=== PATIENT | female | born 1945 | race Two or more races ===

== ENCOUNTER 2017-04-17 08:30 | Inpatient (IN) | payer MEDICARE, BC, OTHER ==
[~2017-04-17] VITALS: Ht 152.4 cm; Wt 52.1 kg
[~2017-04-17 08:30] MED LIST: AMLO5 PO; LACT20SO4 PO; LINA290C PO; PROT40TA PO; TAB-TAB PO; TRAZ50TA4 PO
[2017-04-17 08:35] VITALS: BP 157/89; PULSE 108; RESP 16; TEMP 98.9; O2SAT 97
[2017-04-17 10:30] VITALS: BP_SYST 169; BP_SYST 196; BP_SYST 207; BP_DIAS 71; BP_DIAS 74; BP_DIAS 83; RESP 20; RESP 21
[2017-04-17] MEDS ORDERED: AMLO5 PO (10:31)
[2017-04-17] MEDS ORDERED: LACT10SO PO (10:31)
[2017-04-17] MEDS ORDERED: SODIUM CHLOR 0.9% 1000 ML INJ 1,000 ML IV ONE (10:53)
--- NOTE | 2017-04-17 10:55 | PD ---
HPI Chief Complaint: Abdominal pain Time Seen by Provider: 10:47 Travel History International Travel<30 days: No Contact w/Intl Traveler<30days: No Traveled to known affect area: No History of Present Illness HPI 71yo F with PMH of HTN, lung cancer now cancer free for 5 years, CAD, recurrent small bowel obstruction presents to the ED with c/o left lower abdominal pain since last night. Pain is constant, nonradiating and associated with nausea. Pt also had a near syncope episode while having a bowel movement at 2am today. States it was dark. States she had colonoscopy and endoscopy 2 months ago and there was infection in her stomach and she finished her antibiotics. Does not know who her GI physician is. Denies any fever, chest pain, sob, focal weakness or numbness. Pt has an extensive past surgical history with partial colectomy, lysis of adhesions, appendectomy, hysterectomy. Last had bowel obstruction in 2015 and it was medically managed. PFSH Past Medical History Asthma: No Blood Disorders: Yes (PT STATES ANEMIC) Anxiety: No Depression: Yes (HX OF. NOT CURRENTLY) Heart Rhythm Problems: No Cancer: Yes (HX LUNG CANCER) Cardiovascular Problems: Yes High Cholesterol: No Chemotherapy: No Chest Pain: No Congestive Heart Failure: No COPD: No Cerebrovascular Accident: No Diabetes: No Endocrine: No Gastrointestinal Disorders: Yes (CONSTIPATION, PT STATES HAS "TOO MUCH SCAR TISSUE") GERD: No Glaucoma: Yes Genitourinary: No Headaches: No Hepatitis: No Hiatal Hernia: No Hypertension: Yes Immune Disorder: No Implanted Vascular Access Dvce: Yes Kidney Stones: No Musculoskeletal: No Neurologic: Yes Psychiatric: No Reproductive: No Respiratory: Yes (LEFT LUNG MASS HX) Migraines: No Myocardial Infarction: No Radiation Therapy: No Renal Failure: No Seizures: No Sleep Apnea: No Thyroid Disease: No Ulcer: No Tetanus Vaccination: < 5 Years Ovarian Cysts: Yes Past Surgical History Abdominal Surgery: Yes (APPENDECTOMY, PORTION OF COLON REMOVED) AICD: No Appendectomy: Yes Arteriovenous Shunt: No Cardiac Surgery: No Cholecystectomy: No Ear Surgery: No Endocrine Surgery: No Eye Surgery: Yes (BILATERAL CATARACTS AND GLUACOMA) Genitourinary Surgery: No Gynecologic Surgery: Yes (HYSTERECTOMY, OVARIAN CYSTS REMOVED X 2) Hysterectomy: Yes Insulin Pump: No Joint Replacement: No Oral Surgery: No Pacemaker: No Thoracic Surgery: Yes (PORTION OF LUNG REMOVED FOR BREAST CANCER AUG 2012) Other Surgery: Yes (PLASTIC SURG ON BOTH ARMS) Social History Alcohol Use: No Tobacco Use: No Substance Use: No Allergies-Medications (Allergen,Severity, Reaction): Coded Allergies: Rocephin (Verified Allergy, Intermediate, FLUSHING, ITCHING, 04/17/17) Reported Meds & Prescriptions Reported Meds & Active Scripts Active Reported Lactulose Liq (Lactulose) 10 Gm/15 Ml Soln 30 Ml PO DAILY PRN Norvasc (Amlodipine Besylate) 5 Mg Tab 5 Mg PO DAILY Review of Systems Except as stated in HPI: all other systems reviewed are Neg Physical Exam Narrative GENERAL: 71yo F in mild distress. SKIN: Focused skin assessment warm/dry. HEAD: Atraumatic. Normocephalic. CARDIOVASCULAR: Regular rate and rhythm. RESPIRATORY: No accessory muscle use. Clear to auscultation. Breath sounds equal bilaterally. GASTROINTESTINAL: Abdomen soft, +TTP LLQ. No rebound tenderness. MUSCULOSKELETAL: No obvious deformities. No clubbing. No cyanosis. No edema. NEUROLOGICAL: Awake and alert. No obvious cranial nerve deficits. Motor grossly within normal limits. Normal speech. PSYCHIATRIC: Appropriate mood and affect; insight and judgment normal. Data Data Last Documented VS Vital Signs Date Time Temp Pulse Resp B/P Pulse Ox O2 Delivery O2 Flow Rate FiO2 04/17/17 10:30 87 20 169/83 79 21 207/74 95 20 196/71 04/17/17 10:18 99 Room Air 04/17/17 08:35 98.9 Orders Electrocardiogram (04/17/17 ) Complete Blood Count With Diff (04/17/17 10:53) Comprehensive Metabolic Panel (04/17/17 10:53) Magnesium (Mg) (04/17/17 10:53) Act Partial Throm Time (Ptt) (04/17/17 10:53) Prothrombin Time / Inr (Pt) (04/17/17 10:53) Urinalysis - C+S If Indicated (04/17/17 10:53) Ecg Monitoring (04/17/17 10:53) Iv Access Insert/Monitor (04/17/17 10:53) Oximetry (04/17/17 10:53) Ondansetron Inj (Zofran Inj) (04/17/17 11:00) Sodium Chloride 0.9% Flush (Ns Flush) (04/17/17 11:00) Sodium Chlor 0.9% 1000 Ml Inj (Ns 1000 M (04/17/17 10:53) Orthostatic Vital Signs (04/17/17 10:53) Troponin I (04/17/17 10:55) Ct Abd/Pel W Iv Contrast(Rout) (04/17/17 ) Morphine Inj (Morphine Inj) (04/17/17 13:00) Blood Culture (04/17/17 13:31) Lactic Acid Sepsis Protocol (04/17/17 13:31) Vancomycin Inj (Vancomycin Inj) (04/17/17 13:45) Metoclopramide Inj (Reglan Inj) (04/17/17 13:45) Iohexol 350 Inj (Omnipaque 350 Inj) (04/17/17 14:37) Diphenhydramine Inj (Benadryl Inj) (04/17/17 15:45) Admit Order (Ed Use Only) (04/17/17 16:05) Labs Laboratory Tests Test 04/17/17 04/17/17 04/17/17 04/17/17 10:34 10:39 11:16 12:18 Troponin I LESS THAN 0.02 NG/ML White Blood Count 18.2 TH/MM3 Red Blood Count 4.95 MIL/MM3 Hemoglobin 14.6 GM/DL Hematocrit 44.6 % Mean Corpuscular Volume 90.2 FL Mean Corpuscular Hemoglobin 29.5 PG Mean Corpuscular Hemoglobin 32.8 % Concent Red Cell Distribution Width 13.8 % Platelet Count 295 TH/MM3 Mean Platelet Volume 9.5 FL Neutrophils (%) (Auto) 87.1 % Lymphocytes (%) (Auto) 6.1 % Monocytes (%) (Auto) 6.2 % Eosinophils (%) (Auto) 0.4 % Basophils (%) (Auto) 0.2 % Neutrophils # (Auto) 15.9 TH/MM3 Lymphocytes # (Auto) 1.1 TH/MM3 Monocytes # (Auto) 1.1 TH/MM3 Eosinophils # (Auto) 0.1 TH/MM3 Basophils # (Auto) 0.0 TH/MM3 CBC Comment AUTO DIFF Differential Total Cells 100 Counted Neutrophils % (Manual) 83 % Band Neutrophils % 3 % Lymphocytes % 6 % Monocytes % 7 % Eosinophils % 1 % Neutrophils # (Manual) 15.7 TH/MM3 Differential Comment FINAL DIFF MANUAL Platelet Estimate NORMAL Platelet Morphology Comment NORMAL Red Cell Morphology Comment NORMAL Prothrombin Time 10.4 SEC Prothromb Time International 0.9 RATIO Ratio Activated Partial 20.5 SEC Thromboplast Time B-Type Natriuretic Peptide 55 PG/ML Urine Color YELLOW Urine Turbidity CLEAR Urine pH 6.5 Urine Specific [place] 1.017 Urine Protein TRACE mg/dL Urine Glucose (UA) NEG mg/dL Urine Ketones TRACE mg/dL Urine Occult Blood NEG Urine Nitrite NEG Urine Bilirubin NEG Urine Urobilinogen LESS THAN 2.0 MG/DL Urine Leukocyte Esterase NEG Urine RBC 3 /hpf Microscopic Urinalysis Comment CULT NOT INDICATED Sodium Level 141 MEQ/L Potassium Level 5.1 MEQ/L Chloride Level 109 MEQ/L Carbon Dioxide Level 27.7 MEQ/L Anion Gap 4 MEQ/L Blood Urea Nitrogen 16 MG/DL Creatinine 0.67 MG/DL Estimat Glomerular Filtration 87 ML/MIN Rate Random Glucose 98 MG/DL Calcium Level 9.0 MG/DL Magnesium Level 2.2 MG/DL Total Bilirubin 0.3 MG/DL Aspartate Amino Transf 15 U/L (AST/SGOT) Alanine Aminotransferase 14 U/L (ALT/SGPT) Alkaline Phosphatase 61 U/L C-Reactive Protein 0.35 MG/DL Total Protein 6.6 GM/DL Albumin 3.4 GM/DL Test 04/17/17 13:53 Lactic Acid Level 0.6 mmol/L [facility] Medical Decision Making Medical Screen Exam Complete: Yes Emergency Medical Condition: Yes Interpretation(s) EKG: NSR 87bpm. Normal axis. ST depression II, III, aVF, V4-V6. Differential Diagnosis Acute diverticulitis vs. GI bleed vs. vasovagal syncope vs. malignancy vs. obstruction Narrative Course 71yo F with left lower abdominal pain since last night. Pt vomited in the ED and was given zofran. Pt vomited again after zofran and reglan ordered. Pt given morphine for pain and currently feels better. Still a little nauseous. Labs reviewed, leukocytosis at 18.2. Troponin negative. H/H stable. Hemaprompt negative. CMP unremarkable. UA negative. Pt was given vancomycin and aztreonam. Pt reevaluated at bedside and denies any more nausea. But now her face is red and she is itching, likely due to the vancomycin. It has been stopped and diphenhydramine 50mg IV ordered. Denies any sob. CTa/p showed moderately dilated loops of small bowel which is about same compared to prior study in 05/01/16. Pt is well appearing and has not vomited since reglan. Discussed with Dr. Mancia who will consult and inform Dr. Yang since he saw the patient last time. Discussed with resident physician and accepted to their service. Diagnosis Primary Impression: Partial small bowel obstruction Admitting Information Admitting Physician Requests: Observation Scripts Acetaminophen (Eq Acetaminophen)325 Mg [id number] Mg PO Q4H PRN (PAIN SCALE 4 TO 10 ) #60 TAB Prov:Owen Spicer MD R3 04/18/17 Gladys Hewitt DO Apr 17, 2017 10:55
[2017-04-17] MEDS ORDERED: SODIUM CHLORIDE 0.9% FLUSH 10 ML FLUSH IVF PRN (11:00)
[2017-04-17] MEDS ORDERED: ONDANSETRON HCL 4 MG/2 ML VIAL IVP ONE (11:00)
[2017-04-17 11:51] LABS: AUTOMATED NEUTROPHIL # 15.9 TH/MM3 (1.8-7.7); BASOPHIL % 0.2 % (0.0-2.0); EOSINOPHIL # 0.1 TH/MM3 (0-0.4); EOSINOPHIL % 0.4 % (0.0-4.0); HEMATOCRIT 44.6 % (35.0-46.0); LYMPH % 6.1 % (9.0-44.0); LYMPHOCYTE # 1.1 TH/MM3 (1.0-4.8); MEAN CELL VOLUME 90.2 FL (80.0-100.0); MEAN CORPUSCULAR HEMOGLOBIN 29.5 PG (27.0-34.0); MEAN CORPUSCULAR HGB CONC 32.8 % (32.0-36.0); MONO % 6.2 % (0.0-8.0); NEUT % 87.1 % (16.0-70.0); PLATELET COUNT 295 TH/MM3 (150-450); RED BLOOD COUNT 4.95 MIL/MM3 (4.00-5.30); RED CELL DISTRIBUTION WIDTH 13.8 % (11.6-17.2); WHITE BLOOD COUNT 18.2 TH/MM3 (4.0-11.0)
[2017-04-17 11:52] LABS: HEMO FLAGS AUTO DIFF
[2017-04-17 11:56] LABS: BLOOD, URINE NEG (NEG); COMMENT (UR) CULT NOT INDICATED; CULTURE IF INDICATED CULT NOT INDICATED; GLUCOSE,URINE NEG (NEG); KETONE, URINE TRACE mg/dL (NEG); NITRITE,URINE NEG (NEG); PH, URINE 6.5 (5.0-8.5); URINE COLOR YELLOW (YELLW/STRAW)
[2017-04-17 11:57] LABS: APTT (PATIENT) 20.5 SEC (24.3-30.1); INTERNATIONAL NORMALIZED RATIO 0.9 RATIO; PROTHROMBIN TIME - PATIENT 10.4 SEC (9.8-11.6)
[2017-04-17 12:23] LABS: BANDS 3 % (0-6); EOSINOPHILS 1 % (0-4); NEUTROPHIL # MANUAL DIFF 15.7 TH/MM3 (1.8-7.7); PLATELET ESTIMATE SMEAR NORMAL (NORMAL); PLATELET MORPHOLOGY NORMAL (NORMAL); POLYS (SEG NEUTROPHILS) 83 % (16-70); SCAN/DIFF FINAL DIFF MANUAL; WBC DIFF SAMPLE 100
[2017-04-17] MEDS ORDERED: MORPHINE SULFATE 4 MG/ML INJ IV PUSH ONE (13:00)
[2017-04-17 13:02] LABS: AST (GOT) 15 U/L (15-37); BICARBONATE 27.7 MEQ/L (21.0-32.0); BLOOD UREA NITROGEN 16 MG/DL (7-18); GLOMERULAR FILTRATION RATE 87 ML/MIN (>89); MAGNESIUM 2.2 MG/DL (1.5-2.5)
[2017-04-17 13:27] LABS: ALKALINE PHOSPHATASE 61 U/L (45-117); ALT (GPT) 14 U/L (10-53); ANION GAP 4 MEQ/L (5-15); CHLORIDE 109 MEQ/L (98-107); POTASSIUM 5.1 MEQ/L (3.5-5.1); SODIUM (NA) 141 MEQ/L (136-145); TOTAL BILIRUBIN ADULT 0.3 MG/DL (0.2-1.0)
[2017-04-17] MEDS ORDERED: METOCLOPRAMIDE INJ 10 MG in SODIUM CHLORIDE 0.9% INJ 50 ML IV ONE (13:45)
[2017-04-17] MEDS ORDERED: VANCOMYCIN INJ 800 MG in SODIUM CHLOR 0.9% 250 ML INJ 250 ML IV ONE (13:45)
[2017-04-17] MEDS ORDERED: IOHEXOL 350 MG/ML 10 ML VIAL (for RAD DIAG) IV ONE (14:37)
--- NOTE | 2017-04-17 14:52 | RADRPT ---
EXAM DATE/TIME: 04/17/2017 14:34 [facility] COMPARISON: CT ABDOMEN & PELVIS W/O CONTRAST, May 01, 2016, 10:13. INDICATIONS : Diffuse abdomen pain for two months. IV CONTRAST: 76 cc Omnipaque 350 (iohexol) IV ORAL CONTRAST: No oral contrast ingested. RADIATION DOSE: 5.13 CTDIvol (mGy) MEDICAL HISTORY : Hypertension. Carcinoma, lung. SURGICAL HISTORY : Appendectomy. ENCOUNTER: Initial ACUITY: 2 months PAIN SCALE: 3/10 LOCATION: Left lower quadrant TECHNIQUE: Volumetric scanning of the abdomen and pelvis was performed. Using automated exposure control and ad justment of the mA and/or kV according to patient size, radiation dose was kept as low as reasonably achievable to obtain optimal diagnostic quality images. DICOM format image data is available electro nically for review and comparison. FINDINGS: LOWER LUNGS: The visualized lower lungs are clear. LIVER: Homogeneous density without lesion. There is no dilation of the biliary tree. No calcified gallston es. SPLEEN: Normal size without lesion. PANCREAS: Within normal limits. KIDNEYS: Normal in size and shape. There is no mass, stone or hydronephrosis. ADRENAL GLANDS: Within normal limits. VASCULAR: There is no aortic aneurysm. Atherosclerotic changes. BOWEL/MESENTERY: There is evidence of previous abdominal surgery with bowel resection in the right lower quadrant. The re are multiple moderately dilated loops of small bowel. No inflammatory changes are seen. The dilat ed loops appear to extend to the region of anastomosis in the right lower quadrant. The bowel dilatat ion is about the same compared to the prior exam from 05/01/2016. There is no evidence of free air or free fluid. The colon is nondistended. ABDOMINAL WALL: Within normal limits. RETROPERITONEUM: There is no lymphadenopathy. BLADDER: Decompressed REPRODUCTIVE: Within normal limits. INGUINAL: There is no lymphadenopathy or hernia. MUSCULOSKELETAL: Within normal limits for patient age. Primary degenerative changes. CONCLUSION: 1. There is evidence of previous resection of the bowel with surgical anastomosis in the right lower quadrant. There continues to be some moderately dilated loops of small bowel which appear to be about the same compared to the prior study of 05/01/2016. Differential considerations would include chronic dilatation secondary to surgery versus ileus versus a partial small bowel obstruction. 2. There is no evidence of free fluid or free air to indicate a breakdown of the surgical anastomosis . 3. Otherwise, stable examination compared to the prior exam. Jorge L Page MD on April 17, 2017 at 14:44 Board Certified Radiologist. This report was verified electronically.
--- NOTE | 2017-04-17 14:56 | EKG ---
Date Performed: 04/17/2017 Time Performed: 08:45:47 PTAGE: 71 years EKG: Sinus rhythm LEFT VENTRICULAR HYPERTROPHY AND ST-T CHANGE ABNORMAL ECG PREVIOUS TRACING : 10/12/2012 15.22 DOCTOR: Juancho Adkins Interpretating Date/Time 04/17/2017 14:53:05
[2017-04-17] MEDS ORDERED: diphenhydrAMINE HCL 50 MG/ML VIAL IV PUSH ONE (15:45)
[2017-04-17 16:12] VITALS: BP 134/72; PULSE 104; RESP 20; O2SAT 100
[2017-04-17] MEDS ORDERED: NALOXONE HCL 0.4 MG/ML AMP IV PRN (16:30)
[2017-04-17] MEDS ORDERED: SODIUM CHLORIDE 0.9% FLUSH 10 ML FLUSH IV FLUSH PRN (16:30)
[2017-04-17] MEDS ORDERED: ONDANSETRON HCL 4 MG/2 ML VIAL IVP PRN (16:30)
[2017-04-17] MEDS ORDERED: LACTULOSE SYRUP 20 GM/30 ML CUP PO PRN (16:30)
[2017-04-17] MEDS ORDERED: BISACODYL 10 MG SUPP RECTAL PRN (16:30)
[2017-04-17] MEDS ORDERED: MAGNESIUM HYDROXIDE SUSP 30 ML CUP PO PRN (16:30)
[2017-04-17] MEDS ORDERED: ACETAMINOPHEN 325 MG TAB PO PRN (16:30)
[2017-04-17] MEDS ORDERED: SENNOSIDES 8.6 MG TAB PO PRN (16:30)
--- NOTE | 2017-04-17 16:31 | HHI.HP ---
[facility] Service Family Medicine Primary Care Physician No Primary Care Physician Admission Diagnosis Partial small bowel obstruction Diagnoses: International Travel<30 Days: No Contact w/Intl Traveler<30days: No Known Affected Area: No History of Present Illness Patient is a 71-year-old female with history of multiple abdominal surgeries and recurrent bowel obstructions presenting due to constipation. Patient reports that she had an episode yesterday evening where she lost control of her bowels. She had a large bowel movement on the floor and felt as if she lost control of her body and fell. Bowel movement was soft and brown, nonbloody. No associated loss of consciousness, dizziness, shaking, seizure- like activity. She endorses discomfort in the left side of her abdomen. She denies black or bloody stools. She has not had a bowel movement or passed gas today. She reports that she has vomited 4. Vomitus is nonbloody, nonbilious, does not contained fecal matter, and is composed of previously consumed food. Patient has a history of multiple abdominal surgeries and has had bowel obstructions on several occasions. Her last colonoscopy was 23 months ago and she believes this was normal. She takes lactulose every other day and she normally has a bowel movement daily. She has had issues with right knee instability over the past 3 months. She reports that she has lost balance after standing for a extended period of time. (Owen Spicer MD R3) Review of Systems Constitutional: COMPLAINS OF: Chills, DENIES: Fever Eyes: DENIES: Blurred vision Ears, nose, mouth, throat: COMPLAINS OF: Vertigo (occasional), DENIES: Hearing loss Respiratory: COMPLAINS OF: Shortness of breath (occasional) Cardiovascular: DENIES: Chest pain Gastrointestinal: COMPLAINS OF: Abdominal pain Genitourinary: DENIES: Dysuria Musculoskeletal: COMPLAINS OF: Joint pain Integumentary: DENIES: Rash Hematologic/lymphatic: DENIES: Bruising Neurologic: DENIES: Headache (Owen Spicer MD R3) Past Family Social History Past Medical History Hypertension Recurrent bowel obstructions Chronic constipation Lung cancer Atrial fibrillation, overlock collar setter is Dr. Lieberman who she saw about 1 year ago. Patient is not sure if she has ever had a echocardiogram. Past Surgical History Bilateral cataracts Hysterectomy Ovarian cyst removal Plastic surgery on both arms Lung resection secondary to lung cancer Appendectomy Colon resection Reported Medications Reported Meds & Active Scripts Active Reported Lactulose Liq (Lactulose) 10 Gm/15 Ml Soln 30 Ml PO DAILY PRN Norvasc (Amlodipine Besylate) 5 Mg Tab 5 Mg PO DAILY (Owen Spicer MD R3) Allergies: Coded Allergies: Rocephin (Verified Allergy, Intermediate, FLUSHING, ITCHING, 04/17/17) Active Ordered Medications Inpatient Medications Acetaminophen (Tylenol) 650 mg Q4H PRN PO TEMP > 100.4; Start 04/17/17 at 16:30 ; Status UNV Bisacodyl (Dulcolax Supp) 10 mg DAILY PRN RECTAL SEVERE CONSITIPATION; Start at 16:30; Status UNV Diphenhydramine HCl 50 mg 50 mg ONCE ONCE IV PUSH Last administered on 15:53; Start 04/17/17 at 15:45; Stop 04/17/17 at 15:46; Status DC Enoxaparin Sodium (Lovenox Inj) 40 mg Q24H SQ ; Start 04/17/17 at 16:30; Status UNV Lactulose (Lactulose Liq) 30 ml DAILY PRN PO SEVERE CONSITIPATION; Start at 16:30; Status UNV Magnesium Hydroxide (Milk Of Magnesia Liq) 30 ml Q12H PRN PO MILD - MODERATE CONSTIPATION; Start 04/17/17 at 16:30; Status UNV Metoclopramide HCl/Sodium Chloride (Reglan Inj/NS Inj) 52 ml @ 104 mls/hr ONCE ONCE IV Last administered on 04/17/17 15:53; Start 04/17/17 at 13:45; Stop 04/17/17 at 14:14; Status DC Morphine Sulfate 2 mg 2 mg ONCE ONCE IV PUSH Last administered on 04/17/17 12: 55; Start 04/17/17 at 13:00; Stop 04/17/17 at 13:01; Status DC Naloxone HCl (Narcan Inj) 0.4 mg UNSCH PRN IV SEE LABEL COMMENTS; Start at 16:30; Status UNV Ondansetron HCl (Zofran Inj) 4 mg Q6H PRN IVP NAUSEA OR VOMITING; Start at 16:30; Status UNV Senna/Docusate Sodium ([place]-Colace) 1 tab BID PO ; Start 04/17/17 at 21:00; Status UNV Sennosides (Senokot) 17.2 mg Q12H PRN PO MODERATE - SEVERE CONSTIPATION; Start 04/17/17 at 16:30; Status UNV Sodium Chloride (NS 1000 ml Inj) 1,000 ml @ 100 mls/hr Q10H IV ; Start 04/17/17 at 16:16; Status UNV Sodium Chloride (NS Flush) 2 ml BID IV FLUSH ; Start 04/17/17 at 21:00; Status UNV Vancomycin HCl 800 mg/Sodium Chloride 258 ml @ 250 mls/hr ONCE ONCE IV Last administered on 04/17/17t 15:53; Start 04/17/17 at 13:45; Stop 04/17/17 at 14:46; Status DC Family History Mother: HTN, MS, at 78 Father:HTN, MS, at 60 Social History Lives with of 54 years Originally from [place] Never smoked, drinks a glass of wine occasionally Denies illicit substance use. (Owen Spicer MD R3) Physical Exam Vital Signs Vital Signs Date Time Temp Pulse Resp B/P Pulse Ox O2 Delivery O2 Flow Rate FiO2 04/17/17 16:12 104 20 134/72 100 Room Air 04/17/17 10:30 87 20 169/83 79 21 207/74 95 20 196/71 04/17/17 10:18 79 28 99 Room Air 04/17/17 08:35 98.9 108 16 157/89 97 Physical Exam GENERAL: This is a well-nourished, well-developed patient, appears uncomfortable. SKIN: No rashes, ecchymoses or lesions. Face and chest are flushed. Skin is warm and dry. HEAD: Atraumatic. Normocephalic. No temporal or scalp tenderness. EYES: Pupils equal round, sluggish. Extraocular motions intact. ENT: Nose without bleeding, purulent drainage or septal hematoma. Throat without erythema, tonsillar hypertrophy or exudate. Uvula midline. Airway patent. NECK: Trachea midline. No JVD or lymphadenopathy. Supple, nontender, no meningeal signs. CARDIOVASCULAR: Tachycardic rate, regular rhythm, 3/6 continuous machine like murmur, no palpable thrill RESPIRATORY: Clear to auscultation. Normal work of breathing. No significant wheezes rales or rhonchi. GASTROINTESTINAL: Abdomen soft, nondistended. Mild tenderness to palpation in LUQ, moderate tenderness with palpation of LLQ. No rebound tenderness. No hepato-splenomegaly, or palpable masses. No guarding. MUSCULOSKELETAL: Extremities without clubbing, cyanosis, or edema. No joint tenderness, effusion, or edema noted. No calf tenderness. Negative Homans sign bilaterally. Left knee with no significant joint line tenderness. Anterior and posterior drawer signs negative. NEUROLOGICAL: Awake and alert. Cranial nerves II through XII intact. Motor and sensory grossly within normal limits. Five out of 5 muscle strength in all muscle groups. Normal speech. Laboratory Laboratory Tests Test 04/17/17 04/17/17 04/17/17 04/17/17 10:34 10:39 11:16 12:18 Troponin I LESS THAN 0.02 White Blood Count 18.2 Red Blood Count 4.95 Hemoglobin 14.6 Hematocrit 44.6 Mean Corpuscular Volume 90.2 Mean Corpuscular Hemoglobin 29.5 Mean Corpuscular Hemoglobin 32.8 Concent Red Cell Distribution Width 13.8 Platelet Count 295 Mean Platelet Volume 9.5 Neutrophils (%) (Auto) 87.1 Lymphocytes (%) (Auto) 6.1 Monocytes (%) (Auto) 6.2 Eosinophils (%) (Auto) 0.4 Basophils (%) (Auto) 0.2 Neutrophils # (Auto) 15.9 Lymphocytes # (Auto) 1.1 Monocytes # (Auto) 1.1 Eosinophils # (Auto) 0.1 Basophils # (Auto) 0.0 CBC Comment AUTO DIFF Differential Total Cells 100 Counted Neutrophils % (Manual) 83 Band Neutrophils % 3 Lymphocytes % 6 Monocytes % 7 Eosinophils % 1 Neutrophils # (Manual) 15.7 Differential Comment FINAL DIFF MANUAL Platelet Estimate NORMAL Platelet Morphology Comment NORMAL Red Cell Morphology Comment NORMAL Prothrombin Time 10.4 Prothromb Time International 0.9 Ratio Activated Partial 20.5 Thromboplast Time Urine Color YELLOW Urine Turbidity CLEAR Urine pH 6.5 Urine Specific [place] 1.017 Urine Protein TRACE Urine Glucose (UA) NEG Urine Ketones TRACE Urine Occult Blood NEG Urine Nitrite NEG Urine Bilirubin NEG Urine Urobilinogen LESS THAN 2.0 Urine Leukocyte Esterase NEG Urine RBC 3 Microscopic Urinalysis Comment CULT NOT INDICATED Sodium Level 141 Potassium Level 5.1 Chloride Level 109 Carbon Dioxide Level 27.7 Anion Gap 4 Blood Urea Nitrogen 16 Creatinine 0.67 Estimat Glomerular Filtration 87 Rate Random Glucose 98 Calcium Level 9.0 Magnesium Level 2.2 Total Bilirubin 0.3 Aspartate Amino Transf 15 (AST/SGOT) Alanine Aminotransferase 14 (ALT/SGPT) Alkaline Phosphatase 61 Total Protein 6.6 Albumin 3.4 Test 04/17/17 13:53 Lactic Acid Level 0.6 Date/Time Procedure Status Source Growth 04/17/17 14:07 Aerobic Blood Culture Received Blood Peripheral Pending 04/17/17 14:07 Anaerobic Blood Culture Received Blood Peripheral Pending (Owen Spicer MD R3) Result Diagram: 04/17/17 1039 04/17/17 1218 Imaging Last 24 hours Impressions Abdomen/Pelvis CT 04/17/17 0000 Signed Impressions: Service Date/Time: Monday, April 17, 2017 14:34 - CONCLUSION: 1. There is evidence of previous resection of the bowel with surgical anastomosis in the right lower quadrant. There continues to be some moderately dilated loops of small bowel which appear to be about the same compared to the prior study of 05/01/2016. Differential considerations would include chronic dilatation secondary to surgery versus ileus versus a partial small bowel obstruction. 2. There is no evidence of free fluid or free air to indicate a breakdown of the surgical anastomosis. 3. Otherwise, stable examination compared to the prior exam. Jorge L Page MD (Owen Spicer MD R3) Assessment and Plan Assessment and Plan Patient is a 71-year-old female with history of multiple abdominal surgeries and recurrent bowel obstructions presenting due to constipation. Code Status Full Discussed Condition With SDW Dr. Oneal, PGY1 (Owen Spicer MD R3) Attending Attestation THIS CASE WAS DISCUSSED WITH THE RESIDENT PHYSICIANS. I HAVE REVIEWED THE RECORD AND AGREE WITH THE ABOVE NOTE AND PLAN OF CARE WAS DISCUSSED. I HAVE AUTHORIZED THE ORDER FOR ADMISSION TO AN IN-PATIENT STATUS. (Haja Holder MD) Problem List: (1) Bowel obstruction Status: Acute Plan: Patient with history of multiple abdominal surgeries and recurrent bowel obstruction. She denies passing gas or having a bowel movement since yesterday. On exam patient with positive bowel sounds. -Patient will remain NPO -Gen. surgery consulted for further evaluation, appreciate recommendations -Consider NG tube placement for bowel decompression Imaging: CT of the abdomen/pelvis: Evidence of previous resection of the bowel with surgical anastomosis in the right lower quadrant. Moderately dilated loops of small bowel which appears to be the same as prior imaging done 1 year ago. Differential includes chronic dilatation versus ileus versus partial small bowel traction. No free fluid or free air. Overall stable from prior imaging. Pain control: [place] and Morphine PRN (2) Leucocytosis Status: Acute Plan: On admission patient with white blood cell count elevated to 18.2. Lactic acid within normal limits at 0.6. Patient is afebrile, heart rate is intermittently elevated. No obvious source of infection. -No signs of abdominal infection on CT. -UA with no signs of infection -We'll check a chest x-ray to rule out pneumonia -We'll check a ESR and a CRP -Blood cultures pending History: Patient received vancomycin 1 and aztreonam 1 in the ED. Patient with "red man" syndrome after administration of vancomycin. (3) Cardiac murmur Status: Acute Plan: On exam patient with significant heart murmur. Per EMR review patient with history of atrial fibrillation. She is followed by a overlock collar setter, Dr. Lieberman. She does not recall if she's ever had a echocardiogram. Denies recent or current chest pain. Initial troponin less than 0.02. -2-D echo -Telemetry (4) Cataplexy Status: Acute Plan: Patient endorses an episode where she lost control of her body and also lost control of her bowels. She denies any associated loss of consciousness. -EEG to rule out seizure -See plan for cardiac murmur (5) Recurrent right knee instability Status: Acute Plan: Patient reports history of recurrent right knee instability. She denies any injury to her knee. Prior knee x-ray from 2005 with mild osteoarthritis. No acute fracture. -We'll check a right knee x-ray (6) HTN (hypertension) Status: Acute Plan: Continue home amlodipine (7) FEN/PPX Status: Acute Plan: Fluids: NS 100mls/hr Electrolytes: Within normal limits, continue to monitor Nutrition: NPO DVT PPX: Will hold pending evaluation by surgery (Owen Spicer MD R3) Physician Certification 2 Midnight Certification Type: Admission for Inpatient Services Order for Inpatient Services The services are ordered in accordance with Medicare regulations or non- Medicare payer requirements, as applicable. In the case of services not specified as inpatient-only, they are appropriately provided as inpatient services in accordance with the 2-midnight benchmark. Estimated LOS (days): 2 2 days is the estimated time the patient will need to remain in the hospital, assuming treatment plan goals are met and no additional complications. Post-Hospital Plan: Not yet determined (Owen pSicer MD R3) Owen Spicer MD R3 Apr 17, 2017 16:31 Haja Holder MD Apr 18, 2017 11:01
[2017-04-17] MEDS ORDERED: ENOXAPARIN SODIUM 40 MG/0.4 ML SYRINGE SQ SCH (17:00)
[2017-04-17] MEDS ORDERED: ACETAMINOPHEN/HYDROcodone 325 MG/7.5 MG TAB PO PRN (17:00)
[2017-04-17] MEDS ORDERED: MORPHINE SULFATE 4 MG/ML INJ IV PRN (17:00)
[2017-04-17] MEDS ORDERED: IBUPROFEN 400 MG TAB PO PRN (17:00)
[2017-04-17] MEDS ORDERED: ACETAMINOPHEN/HYDROcodone 325 MG/5 MG TAB PO PRN (17:00)
--- NOTE | 2017-04-17 17:46 | PD.CONS ---
cc: Shad Yang MD [facility] Service General Surgery Consult Requested By Dr. Hewitt Reason for Consult Partial small bowel obstruction Primary Care Physician No Primary Care Physician History of Present Illness This is a 71-year-old female with a past medical history of lung cancer, coronary artery disease, and recurrent small bowel obstructions. She started having left lower abdominal pain about 2 AM this morning. She felt the need to have a bowel movement and she went to the bathroom. She had a syncopal episode while on the toilet and had a large amount of dark, black diarrhea. Since then she has vomited 4 times, the last time being at approximately noon today. She reports she has not passed any gas since the pain started. She has had off and on again nausea. She came to the emergency room for evaluation of abdominal pain and a CT scan was obtained which showed a possible partial small bowel obstruction. General Surgery consultation has been requested. Review of Systems Constitutional: COMPLAINS OF: Fatigue, DENIES: Chills, Change in appetite Endocrine: DENIES: Polydipsia, Polyuria, Polyphagia Eyes: DENIES: Eye inflammation Ears, nose, mouth, throat: DENIES: Vertigo Respiratory: DENIES: Snoring Cardiovascular: DENIES: Palpitations Gastrointestinal: COMPLAINS OF: Abdominal pain, Diarrhea, Nausea, Vomiting Genitourinary: DENIES: Urinary frequency Musculoskeletal: DENIES: Joint pain Integumentary: DENIES: Abnormal pigmentation Hematologic/lymphatic: DENIES: Bruising Immunologic/allergic: DENIES: Eczema Neurologic: DENIES: Localized weakness Psychiatric: DENIES: Mood changes, Depression, Hallucinations Past Family Social History Past Medical History Lung cancer Coronary artery disease Recurrent small bowel obstructions Past Surgical History Appendectomy Hysterectomy Lysis of adhesions Partial colectomy Reported Medications Norvasc Lactulose Allergies: Coded Allergies: Rocephin (Verified Allergy, Intermediate, FLUSHING, ITCHING, 04/17/17) Active Ordered Medications Current Medications Medications (Trade) Dose Ordered Sig/Mike Route Start Time Stop Time Status Last Admin (NS 1000 ml Inj) 1,000 ml @ 100 mls/hr Q10H IV 04/17/17 18:00 (NS Flush) 2 ml UNSCH PRN IV FLUSH 04/17/17 16:30 (NS Flush) 2 ml BID IV FLUSH 04/17/17 21:00 (Tylenol) 650 mg Q4H PRN PO 04/17/17 16:30 (Zofran Inj) 4 mg Q6H PRN IVP 04/17/17 16:30 (Lovenox Inj) 40 mg Q24H SQ 04/17/17 17:00 Hold (Narcan Inj) 0.4 mg UNSCH PRN IV 04/17/17 16:30 (Marylin-Colace) 1 tab BID PO 04/17/17 21:00 (Milk Of Magnesia Liq) 30 ml Q12H PRN PO 04/17/17 16:30 (Senokot) 17.2 mg Q12H PRN PO 04/17/17 16:30 (Dulcolax Supp) 10 mg DAILY PRN RECTAL 04/17/17 16:30 (Lactulose Liq) 30 ml DAILY PRN PO 04/17/17 16:30 (Norvasc) 5 mg DAILY PO 04/18/17 09:00 (Motrin) 400 mg Q6H PRN PO 04/17/17 17:00 ([place] 5-325 Mg) 1 tab Q4H PRN PO 04/17/17 17:00 ([place] 7.5-325 Mg) 1 tab Q4H PRN PO 04/17/17 17:00 (Morphine Inj) 4 mg Q3H PRN IV 04/17/17 17:00 Family History Noncontributory Social History Denies tobacco use Denies EtOH use Denies illicit drug use Physical Exam Vital Signs Vital Signs Date Time Temp Pulse Resp B/P Pulse Ox O2 Delivery O2 Flow Rate FiO2 04/17/17 16:12 104 20 134/72 100 Room Air 04/17/17 10:30 87 20 169/83 79 21 207/74 95 20 196/71 04/17/17 10:18 79 28 99 Room Air 04/17/17 08:35 98.9 108 16 157/89 97 Physical Exam GENERAL: 71 year old female resting in bed in no acute distress. SKIN: Warm and dry. HEAD: Atraumatic. Normocephalic. EYES: Pupils equal and round. No scleral icterus. No injection or drainage. ENT: No nasal bleeding or discharge. Mucous membranes pink and moist. NECK: Trachea midline. CARDIOVASCULAR: Regular rate and rhythm. RESPIRATORY: No accessory muscle use. Clear to auscultation. Breath sounds equal bilaterally. GASTROINTESTINAL: Abdomen soft, nondistended. Patient is tender to palpation in LLQ only. There is a well healed midline incision and transverse incision. MUSCULOSKELETAL: Extremities without clubbing, cyanosis, or edema. No obvious deformities. NEUROLOGICAL: Awake and alert. No obvious cranial nerve deficits. Motor grossly within normal limits. Five out of 5 muscle strength in the arms and legs. Normal speech. PSYCHIATRIC: Appropriate mood and affect; insight and judgment normal. Laboratory Laboratory Tests Test 04/17/17 04/17/17 04/17/17 04/17/17 10:34 10:39 11:16 12:18 Troponin I LESS THAN 0.02 White Blood Count 18.2 Red Blood Count 4.95 Hemoglobin 14.6 Hematocrit 44.6 Mean Corpuscular Volume 90.2 Mean Corpuscular Hemoglobin 29.5 Mean Corpuscular Hemoglobin 32.8 Concent Red Cell Distribution Width 13.8 Platelet Count 295 Mean Platelet Volume 9.5 Neutrophils (%) (Auto) 87.1 Lymphocytes (%) (Auto) 6.1 Monocytes (%) (Auto) 6.2 Eosinophils (%) (Auto) 0.4 Basophils (%) (Auto) 0.2 Neutrophils # (Auto) 15.9 Lymphocytes # (Auto) 1.1 Monocytes # (Auto) 1.1 Eosinophils # (Auto) 0.1 Basophils # (Auto) 0.0 CBC Comment AUTO DIFF Differential Total Cells 100 Counted Neutrophils % (Manual) 83 Band Neutrophils % 3 Lymphocytes % 6 Monocytes % 7 Eosinophils % 1 Neutrophils # (Manual) 15.7 Differential Comment FINAL DIFF MANUAL Platelet Estimate NORMAL Platelet Morphology Comment NORMAL Red Cell Morphology Comment NORMAL Prothrombin Time 10.4 Prothromb Time International 0.9 Ratio Activated Partial 20.5 Thromboplast Time Urine Color YELLOW Urine Turbidity CLEAR Urine pH 6.5 Urine Specific [place] 1.017 Urine Protein TRACE Urine Glucose (UA) NEG Urine Ketones TRACE Urine Occult Blood NEG Urine Nitrite NEG Urine Bilirubin NEG Urine Urobilinogen LESS THAN 2.0 Urine Leukocyte Esterase NEG Urine RBC 3 Microscopic Urinalysis Comment CULT NOT INDICATED Sodium Level 141 Potassium Level 5.1 Chloride Level 109 Carbon Dioxide Level 27.7 Anion Gap 4 Blood Urea Nitrogen 16 Creatinine 0.67 Estimat Glomerular Filtration 87 Rate Random Glucose 98 Calcium Level 9.0 Magnesium Level 2.2 Total Bilirubin 0.3 Aspartate Amino Transf 15 (AST/SGOT) Alanine Aminotransferase 14 (ALT/SGPT) Alkaline Phosphatase 61 Total Protein 6.6 Albumin 3.4 Test 04/17/17 13:53 Lactic Acid Level 0.6 Date/Time Procedure Status Source Growth 04/17/17 14:07 Aerobic Blood Culture Received Blood Peripheral Pending 04/17/17 14:07 Anaerobic Blood Culture Received Blood Peripheral Pending Result Diagram: 04/17/17 1039 04/17/17 1218 Imaging Last 48 hours Impressions Abdomen/Pelvis CT 04/17/17 0000 Signed Impressions: Service Date/Time: Monday, April 17, 2017 14:34 - CONCLUSION: 1. There is evidence of previous resection of the bowel with surgical anastomosis in the right lower quadrant. There continues to be some moderately dilated loops of small bowel which appear to be about the same compared to the prior study of 05/01/2016. Differential considerations would include chronic dilatation secondary to surgery versus ileus versus a partial small bowel obstruction. 2. There is no evidence of free fluid or free air to indicate a breakdown of the surgical anastomosis. 3. Otherwise, stable examination compared to the prior exam. Jorge L Page MD Assessment and Plan Assessment and Plan 71 year old female with abdominal pain; CT abdomen and pelvis questionable for a small bowel obstruction -Plan for KUB in the morning -Repeat lab is in the morning -Nothing by mouth -Insert NG tube if nausea vomiting occur; placed to LIWS -Will continue to monitor; at this point will attempt nonoperative treatment -Thank you for this consult; we will continue to follow Discussed Condition With Dahiana Little Ms. Apr 17, 2017 17:46
--- NOTE | 2017-04-17 17:48 | RADRPT ---
EXAM DATE/TIME: 04/17/2017 17:17 [facility] COMPARISON: No previous studies available for comparison. INDICATIONS : Short of breath. MEDICAL HISTORY : Hypertension. Carcinoma, lung. SURGICAL HISTORY : None. ENCOUNTER: Initial ACUITY: 1 day PAIN SCORE: 0/10 LOCATION: Bilateral chest FINDINGS: Partial resection left lung and left upper lobectomy. Minimal basal scarring. No effusion. No pneumot horax. Heart size normal. CONCLUSION: 1. Postoperative partial left lung resection. Minimal basilar scarring or atelectasis. Issac Falk MD on April 17, 2017 at 17:46 Board Certified Radiologist. This report was verified electronically.
--- NOTE | 2017-04-17 17:49 | RADRPT ---
EXAM DATE/TIME: 04/17/2017 17:20 [facility] COMPARISON: No previous studies available for comparison. INDICATIONS : Right knee pain and weakness after fall. MEDICAL HISTORY : None. SURGICAL HISTORY : None. ENCOUNTER: Initial ACUITY: 1 day PAIN SCORE: 10/10 LOCATION: Right knee. FINDINGS: Four view examination of the right knee demonstrates no evidence of fracture or dislocation. Bony mi neralization is normal. The articular surfaces are intact. The suprapatellar soft tissues have a no rmal configuration. CONCLUSION: 1. Mild osteoarthritis. No acute findings. Issac Falk MD on April 17, 2017 at 17:47 Board Certified Radiologist. This report was verified electronically.
[2017-04-17] MEDS: SODIUM CHLOR 0.9% 1000 ML INJ 1,000 ML IV SCH ×2 (18:25→22:05)
[2017-04-17 20:00] VITALS: BP 160/72; PULSE 91; RESP 17; TEMP 97.5; O2SAT 97
[2017-04-17] MEDS: SODIUM CHLORIDE 0.9% FLUSH 10 ML FLUSH IV FLUSH SCH (21:00)
[2017-04-17] MEDS: DOCUSATE SODIUM 50 MG/SENNA 8.6 MG TAB PO SCH (21:00)
[2017-04-18] VITALS: BP 114/56; PULSE 71; RESP 18; TEMP 97.9; O2SAT 95
--- NOTE | 2017-04-18 06:28 | RADRPT ---
EXAM DATE/TIME: 04/18/2017 06:17 [facility] COMPARISON: ABDOMEN FLAT & UPRIGHT, May 02, 2016, 5:46. INDICATIONS : Small bowel obstruction. MEDICAL HISTORY : Hypertension. Carcinoma, lung. SURGICAL HISTORY : Appendectomy. ENCOUNTER: Initial ACUITY: 1 day PAIN SCORE: 0/10 LOCATION: Bilateral abdomen FINDINGS: There is contrast in the urinary bladder. Air is present within the large bowel extending to the rect um. There is mild distention of the transverse colon. No dilated loops of small bowel are seen. Surgi chano clips are present. CONCLUSION: Nonspecific, currently nonobstructive bowel gas pattern. Cristhian Diaz MD on April 18, 2017 at 6:26 Board Certified Radiologist. This report was verified electronically.
[2017-04-18 07:14] LABS: AUTOMATED NEUTROPHIL # 6.4 TH/MM3 (1.8-7.7); BASOPHIL % 0.4 % (0.0-2.0); EOSINOPHIL # 0.3 TH/MM3 (0-0.4); EOSINOPHIL % 3.9 % (0.0-4.0); HEMATOCRIT 36.1 % (35.0-46.0); HEMO FLAGS DIFF FINAL; LYMPH % 14.2 % (9.0-44.0); LYMPHOCYTE # 1.3 TH/MM3 (1.0-4.8); MEAN CELL VOLUME 92.1 FL (80.0-100.0); MEAN CORPUSCULAR HGB CONC 32.6 % (32.0-36.0); MONO % 9.5 % (0.0-8.0); PLATELET COUNT 197 TH/MM3 (150-450); RED BLOOD COUNT 3.92 MIL/MM3 (4.00-5.30); RED CELL DISTRIBUTION WIDTH 13.8 % (11.6-17.2); WHITE BLOOD COUNT 8.9 TH/MM3 (4.0-11.0)
[2017-04-18 07:28] LABS: BICARBONATE 22.6 MEQ/L (21.0-32.0); POTASSIUM 3.8 MEQ/L (3.5-5.1)
[2017-04-18 08:00] VITALS: BP 145/65; PULSE 75; RESP 16; TEMP 97.1; O2SAT 98
[2017-04-18] MEDS: DOCUSATE SODIUM 50 MG/SENNA 8.6 MG TAB PO SCH (08:34)
[2017-04-18] MEDS: SODIUM CHLORIDE 0.9% FLUSH 10 ML FLUSH IV FLUSH SCH (08:34)
--- NOTE | 2017-04-18 08:39 | HHI.FPPN ---
Subjective Remarks FM Attending Note: Patient seen and examined. S: Chart and all resident physician notes reviewed. In summary this is a 71 year old female who was admitted with an admission diagnosis of Partial Small Bowel Obstruction. This patient has a history of multiple abdominal surgeries with recurrent bowel obstructions noted. In the past the episodes have been associated with constipation. This patient is on a regimen for constipation which includes Linzess which she apparently has been prescribed daily but has been only using intermittently. Prior to admission the patient did have nausea with several episodes of vomiting. Since her admission overnight she has done well. No further nausea or vomiting is noted. Her abdominal pain has resolved. She is passing gas through her rectum. She feels that she is back to her baseline. She has not eaten yet. Objective Vitals Vital Signs Date Time Temp Pulse Resp B/P Pulse Ox O2 Delivery O2 Flow Rate FiO2 04/18/17 00:00 97.9 71 18 114/56 95 04/17/17 20:00 97.5 91 17 160/72 97 04/17/17 16:12 104 20 134/72 100 Room Air 04/17/17 10:30 87 20 169/83 79 21 207/74 95 20 196/71 04/17/17 10:18 79 28 99 Room Air I/O 04/17/17 04/17/17 04/17/17 04/18/17 04/18/17 04/18/17 07:00 15:00 23:00 07:00 15:00 23:00 Intake Total 616 ml 605 ml Output Total 200 ml Balance 616 ml 405 ml Intake Oral 0 ml IV Total 616 ml 605 ml Output Urine Total 200 ml # Voids 1 # Bowel Movements 1 Result Diagram: 04/18/17 0610 04/18/17 0610 Other Results Item Value Date Time Erythrocyte Sedimentation Rate 10 mm/hr 04/18/17 0610 Total Bilirubin 0.3 MG/DL 04/17/17 1218 Magnesium Level 2.2 MG/DL 04/17/17 1218 Aspartate Amino Transf (AST/SGOT) 15 U/L 04/17/17 1218 Alanine Aminotransferase (ALT/SGPT) 14 U/L 04/17/17 1218 B-Type Natriuretic Peptide 55 PG/ML 04/17/17 1039 C-Reactive Protein 0.35 MG/DL H 04/17/17 1218 Urine Specific [place] 1.017 04/17/17 1116 Urine Nitrite NEG 04/17/17 1116 Urine Leukocyte Esterase NEG 04/17/17 1116 Imaging Last 48 hours Impressions Abdomen X-Ray 04/18/17 0600 Signed Impressions: Service Date/Time: Tuesday, April 18, 2017 06:17 - CONCLUSION: Nonspecific , currently nonobstructive bowel gas pattern. Cristhian Diaz MD Knee X-Ray 04/17/17 0000 Signed Impressions: Service Date/Time: Monday, April 17, 2017 17:20 - CONCLUSION: 1. Mild osteoarthritis. No acute findings. Issac Falk MD Chest X-Ray 04/17/17 0000 Signed Impressions: Service Date/Time: Monday, April 17, 2017 17:17 - CONCLUSION: 1. Postoperative partial left lung resection. Minimal basilar scarring or atelectasis. Issca Falk MD Abdomen/Pelvis CT 04/17/17 0000 Signed Impressions: Service Date/Time: Monday, April 17, 2017 14:34 - CONCLUSION: 1. There is evidence of previous resection of the bowel with surgical anastomosis in the right lower quadrant. There continues to be some moderately dilated loops of small bowel which appear to be about the same compared to the prior study of 05/01/2016. Differential considerations would include chronic dilatation secondary to surgery versus ileus versus a partial small bowel obstruction. 2. There is no evidence of free fluid or free air to indicate a breakdown of the surgical anastomosis. 3. Otherwise, stable examination compared to the prior exam. Jorge L Page MD Objective Remarks O. CONSTITUTIONAL/GEN: normally nourished, in NAD. EYES: conjunctiva normal, PERRLA, EOMI. ENT: Mouth and pharynx normal. LUNGS: clear A-P, respiratory effort is normal. CARDIOVASCULAR: RR without murmur or gallop. No significant edema. GI/ABD: soft without masses, without organomegaly. Non-tender without guarding or rebound. Scars present from previous abdominal surgeries. NEURO: No focal deficits. Gait is normal SKIN: color normal, no rashes noted. HEME/LYMPH: no bruising, petechia or significant adenopathy MUSC: back is normal in appearance. Extremities are normal in appearance. PSYCH/MENTAL STATUS: Alert and oriented x 3. A/P Assessment and Plan Patient is a 71-year-old female with history of multiple abdominal surgeries and recurrent bowel obstructions presenting due to constipation. Problem List: (1) Bowel obstruction Status: Acute Plan: Patient with history of multiple abdominal surgeries and recurrent bowel obstruction. She denies passing gas or having a bowel movement since yesterday. On exam patient with positive bowel sounds. -Patient will remain NPO -Gen. surgery consulted for further evaluation, appreciate recommendations -Consider NG tube placement for bowel decompression Imaging: CT of the abdomen/pelvis: Evidence of previous resection of the bowel with surgical anastomosis in the right lower quadrant. Moderately dilated loops of small bowel which appears to be the same as prior imaging done 1 year ago. Differential includes chronic dilatation versus ileus versus partial small bowel traction. No free fluid or free air. Overall stable from prior imaging. Pain control: [place] and Morphine PRN 04/18/17 This morning her acute findings have resolved. Symptomatically she is back to her baseline. We did discuss the importance of taking her bowel regimen as prescribed by her primary care physician. She is encouraged to stay hydrated and active. Will allow her to eat her next meal and observe for recurrence of symptoms. If no recurrence occurs will plan to discharge patient home to follow -up with her primary care physician. (2) Leucocytosis Status: Acute Plan: On admission patient with white blood cell count elevated to 18.2. Lactic acid within normal limits at 0.6. Patient is afebrile, heart rate is intermittently elevated. No obvious source of infection. -No signs of abdominal infection on CT. -UA with no signs of infection -We'll check a chest x-ray to rule out pneumonia -We'll check a ESR and a CRP -Blood cultures pending History: Patient received vancomycin 1 and aztreonam 1 in the ED. Patient with "red man" syndrome after administration of vancomycin. 04/18/17 Her white blood count has normalized since admission. No further antibiotic treatment is indicated. (3) Cardiac murmur Status: Acute Plan: On exam patient with significant heart murmur. Per EMR review patient with history of atrial fibrillation. She is followed by a asbestos removal supervisor, Dr. Lieberman. She does not recall if she's ever had a echocardiogram. Denies recent or current chest pain. Initial troponin less than 0.02. -2-D echo -Telemetry 04/18/17 Review of her chart shows that she did have an echocardiogram done at this facility in 2009. The report shows that the mitral leaflets were slightly myxomatous in appearance with no obvious mitral valve prolapse of mitral valve stenosis. Mild to moderate mitral regurgitation was noted. (4) Cataplexy Status: Acute Plan: Patient endorses an episode where she lost control of her body and also lost control of her bowels. She denies any associated loss of consciousness. -EEG to rule out seizure -See plan for cardiac murmur (5) Recurrent right knee instability Status: Acute Plan: Patient reports history of recurrent right knee instability. She denies any injury to her knee. Prior knee x-ray from 2005 with mild osteoarthritis. No acute fracture. -We'll check a right knee x-ray (6) HTN (hypertension) Status: Acute Plan: Continue home amlodipine (7) FEN/PPX Status: Acute Plan: Fluids: NS 100mls/hr Electrolytes: Within normal limits, continue to monitor Nutrition: NPO DVT PPX: Will hold pending evaluation by surgery Haja Holder MD Apr 18, 2017 08:39
[2017-04-18] MEDS ORDERED: amLODIPine BESYLATE 5 MG TAB PO SCH (09:00)
[2017-04-18 12:00] VITALS: BP 152/67; PULSE 74; RESP 17; TEMP 96.1; O2SAT 99
[2017-04-18] MEDS: SODIUM CHLOR 0.9% 1000 ML INJ 1,000 ML IV SCH (13:53)
[2017-04-18] MEDS ORDERED: ACET1TAB86 PO (14:14)
--- NOTE | 2017-04-18 14:19 | HHI.DCPOC ---
Discharge Care Plan Diagnosis: (1) Cardiac murmur (2) Bowel obstruction (3) Leucocytosis (4) Abdominal pain (5) HTN (hypertension) (6) Recurrent right knee instability Goals to Promote Your Health * To prevent worsening of your condition and complications * To maintain your health at the optimal level Directions to Meet Your Goals Take your medications as prescribed Follow your dietary instruction Follow activity as directed Keep your appointments as scheduled Take your immunizations and boosters as scheduled If your symptoms worsen call your PCP, if no PCP go to Urgent Care Center or Emergency Room Smoking is Dangerous to Your Health. Avoid second hand smoke Call the 24-hour hour crisis hotline for domestic abuse at Owen Spicer MD R3 Apr 18, 2017 14:19
[2017-04-18 16:00] VITALS: BP 172/77; PULSE 85; RESP 17; TEMP 96.8; O2SAT 100
--- NOTE | 2017-04-18 16:51 | HHI.PR ---
Subjective Subjective Notes Resting in bed Ate lunch no issues +BM Ready to go home Objective Vitals/I&O Vital Signs Date Time Temp Pulse Resp B/P Pulse Ox O2 Delivery O2 Flow Rate FiO2 04/18/17 12:00 96.1 74 17 152/67 99 04/17/17 16:12 Room Air Labs Laboratory Tests Test 04/18/17 06:10 White Blood Count 8.9 Red Blood Count 3.92 Hemoglobin 11.8 Hematocrit 36.1 Mean Corpuscular Volume 92.1 Mean Corpuscular Hemoglobin 30.0 Mean Corpuscular Hemoglobin 32.6 Concent Red Cell Distribution Width 13.8 Platelet Count 197 Mean Platelet Volume 9.1 Neutrophils (%) (Auto) 72.0 Lymphocytes (%) (Auto) 14.2 Monocytes (%) (Auto) 9.5 Eosinophils (%) (Auto) 3.9 Basophils (%) (Auto) 0.4 Neutrophils # (Auto) 6.4 Lymphocytes # (Auto) 1.3 Monocytes # (Auto) 0.8 Eosinophils # (Auto) 0.3 Basophils # (Auto) 0.0 CBC Comment DIFF FINAL Differential Comment Erythrocyte Sedimentation Rate 10 Sodium Level 143 Potassium Level 3.8 Chloride Level 114 Carbon Dioxide Level 22.6 Anion Gap 6 Blood Urea Nitrogen 13 Creatinine 0.59 Estimat Glomerular Filtration 100 Rate Random Glucose 80 Calcium Level 7.9 Date/Time Procedure Status Source Growth 04/17/17 14:07 Aerobic Blood Culture - Preliminary Resulted Blood Peripheral NO GROWTH IN 1 DAY 04/17/17 14:07 Anaerobic Blood Culture - Preliminary Resulted Blood Peripheral NO GROWTH IN 1 DAY Radiology Last 48 hours Impressions Abdomen/Pelvis CT 04/17/17 0000 Signed Impressions: Service Date/Time: Monday, April 17, 2017 14:34 - CONCLUSION: 1. There is evidence of previous resection of the bowel with surgical anastomosis in the right lower quadrant. There continues to be some moderately dilated loops of small bowel which appear to be about the same compared to the prior study of 05/01/2016. Differential considerations would include chronic dilatation secondary to surgery versus ileus versus a partial small bowel obstruction. 2. There is no evidence of free fluid or free air to indicate a breakdown of the surgical anastomosis. 3. Otherwise, stable examination compared to the prior exam. Jorge L Page MD Cardiovascular: Regular Lungs: Clear Abdomen: Non-distended, Non-tender Extremities: No edema A/P Assessment and Plan 71 year old female with SBO; resolved -Tolerated regular diet -DC IVF -KUB reviewed -GS clear for DC -No surgical plans Dahiana Drake Apr 18, 2017 16:51
--- NOTE | 2017-04-18 16:58 | ECHRPT ---
Indication: Paroxysmal atrial fibrillation CONCLUSIONS Normal left ventricular size. Wall thickness is normal. The left ventricular systolic function is low normal with an estimated ejection fraction in the rang e of 50- 55%. Mitral annular calcification is present. Moderate mitral valve regurgitation. Aortic valve sclerosis is present. Trace aortic valve regurgitation. There is moderate tricuspid regurgitation. There is estimated mild pulmonary hypertension present (45 mmHg). BP: / HR: Rhythm: Sinus Technical Quality:Good FINDINGS LEFT VENTRICLE Normal left ventricular size. Wall thickness is normal. The left ventricular systolic function is low normal with an estimated ejection fraction in the rang e of 50- 55%. RIGHT VENTRICLE Normal right ventricular size and systolic function. LEFT ATRIUM The left atrial size is normal. RIGHT ATRIUM The right atrial size is normal. ATRIAL SEPTUM Normal atrial septal thickness without atrial level shunting by limited color doppler interrogation. AORTA The aortic root and proximal ascending aorta are normal in size on limited imaging. MITRAL VALVE Mitral annular calcification is present. Moderate mitral valve regurgitation. AORTIC VALVE Aortic valve sclerosis is present. Trace aortic valve regurgitation. TRICUSPID VALVE There is moderate tricuspid regurgitation. There is estimated mild pulmonary hypertension present ( 45 mmHg). PULMONARY VALVE The pulmonary valve is not well visualized. VESSELS The inferior vena cava is normal in size. PERICARDIUM No pericardial effusion. Navya Rosenberg MD, FACC (Electronically Signed) Final Date:18 April 2017 16:57
--- NOTE | 2017-04-18 22:06 | MG ---
cc: DELMY BARBA M.D., ERIKA M.D. Sex: F REQUESTING PHYSICIAN: Dr. Hernandez. IDENTIFICATION: An EEG was obtained on this 71 year-old patient with history of dizziness. DESCRIPTION: The patient is described as awake and sleep. The EEG is showing 8-10 per second alpha rhythms posteriorly. There is low amplitude beta rhythms centrally and frontally. There are theta rhythms, increase in beta activity during the sleep recording. Hyperventilation was unremarkable. Photic stimulation disclosed no significant change. INTERPRETATION Normal awake and asleep EEG for the patient's age. Delmy Barba MD [facility] /9:41 PM /10:00 PM
== END 2017-04-18 17:41 | disposition home or self-care (01) | DRG 390 ==
LOC: NEPC 08:30 → NEDA 16:07 → N07A 18:27
PROVIDERS: ADMIT Family Medicine; ATTEND Family Medicine
DX: K56.60 Unspecified intestinal obstruction (principal); I48.91 Unspecified atrial fibrillation; I34.0 Nonrheumatic mitral (valve) insufficiency; I10 Essential (primary) hypertension; I25.10 Atherosclerotic heart disease of native coronary artery without angina pectoris; L29.8 Other pruritus; G47.411 Narcolepsy with cataplexy; Z85.118 Personal history of other malignant neoplasm of bronchus and lung; T36.8X5A Adverse effect of other systemic antibiotics, initial encounter; M23.51 Chronic instability of knee, right knee
CPT/HCPCS: 71020; 73564; 74000; 74177; 80048; 80053; 81001; 83605; 83735; 83880; 84484; 85007; 85025; 85027; 85610; 85652; 85730; 86140; 87040; 93005; 93306; 95819; J1200; J2270; J2405; J2765; J3370; J7030; J7050; Q9967

== ENCOUNTER 2017-11-08 12:41 | Emergency (ER) | payer MEDICARE, BC ==
[~2017-11-08] VITALS: Ht 152.4 cm; Wt 55.0 kg
[~2017-11-08 12:41] MED LIST changes: +ACET325T15 PO; +LACT10SO PO; -LACT20SO4 PO; -LINA290C PO; -PROT40TA PO; -TAB-TAB PO; -TRAZ50TA4 PO
[2017-11-08 13:07] VITALS: BP 138/63; PULSE 81; RESP 18; TEMP 98.7; O2SAT 98
--- NOTE | 2017-11-08 13:31 | PD ---
HPI Chief Complaint: Pain: Acute or Chronic Time Seen by Provider: 13:11 Travel History International Travel<30 days: No Contact w/Intl Traveler<30days: No Traveled to known affect area: No History of Present Illness HPI 71-year-old female presents to the emergency room for evaluation of left medial ankle pain and swelling for the past 5 days. Patient states while she was at the grocery store, a step ladder fell on top of her ankle. She had immediate pain. Patient assumed that the pain, swelling, and bruising when improved by now but they are not. The pain is actually worsening. Patient has been taking Advil with moderate relief in symptoms. Pain is worsened with ambulation or when she pushes on it. She is on Xarelto for A. fib. Denies any history of blood clots. PFSH Past Medical History Asthma: No Blood Disorders: Yes (PT STATES ANEMIC) Anxiety: No Depression: Yes (HX OF. NOT CURRENTLY) Heart Rhythm Problems: No Cancer: Yes (Lung) Cardiovascular Problems: Yes High Cholesterol: No Chemotherapy: No Chest Pain: No Congestive Heart Failure: No COPD: No Cerebrovascular Accident: No Diabetes: No Endocrine: No Gastrointestinal Disorders: Yes (CONSTIPATION, PT STATES HAS "TOO MUCH SCAR TISSUE") GERD: No Glaucoma: Yes Genitourinary: No Headaches: No Hepatitis: No Hiatal Hernia: No Hypertension: Yes Immune Disorder: No Implanted Vascular Access Dvce: Yes Kidney Stones: No Musculoskeletal: No Neurologic: No Psychiatric: No Reproductive: No Respiratory: No Migraines: No Myocardial Infarction: No Radiation Therapy: No Renal Failure: No Seizures: No Sleep Apnea: No Thyroid Disease: No Ulcer: No Ovarian Cysts: Yes Past Surgical History Abdominal Surgery: Yes (APPENDECTOMY, PORTION OF COLON REMOVED) AICD: No Appendectomy: Yes Arteriovenous Shunt: No Cardiac Surgery: No Cholecystectomy: No Ear Surgery: No Endocrine Surgery: No Eye Surgery: Yes (BILATERAL CATARACTS AND GLUACOMA) Genitourinary Surgery: No Gynecologic Surgery: Yes (HYSTERECTOMY, OVARIAN CYSTS REMOVED X 2) Hysterectomy: Yes Insulin Pump: No Joint Replacement: No Oral Surgery: No Pacemaker: No Thoracic Surgery: Yes (PORTION OF LUNG REMOVED FOR BREAST CANCER AUG 2012) Other Surgery: Yes (PLASTIC SURG ON BOTH ARMS) Social History Alcohol Use: No Tobacco Use: No Substance Use: No Allergies-Medications (Allergen,Severity, Reaction): Coded Allergies: ceftriaxone (Unverified Allergy, Intermediate, FLUSHING, ITCHING, 11/08/17) Reported Meds & Prescriptions Reported Meds & Active Scripts Active Eq Acetaminophen (Acetaminophen) 325 Mg Tab 650 Mg PO Q4H PRN Reported Lactulose Liq (Lactulose) 10 Gm/15 Ml Soln 30 Ml PO DAILY PRN Norvasc (Amlodipine Besylate) 5 Mg Tab 5 Mg PO DAILY Review of Systems Except as stated in HPI: all other systems reviewed are Neg Physical Exam Narrative GENERAL: Well-nourished, well-developed female no acute distress. Afebrile. Ambulatory. SKIN: Focused skin assessment warm/dry. There is a 6 cm in diameter area of ecchymosis to the left medial lower leg. No erythema or increased warmth. HEAD: Normocephalic. EYES: No scleral icterus. No injection or drainage. NECK: Supple, trachea midline. No JVD or lymphadenopathy. CARDIOVASCULAR: Regular rate and rhythm without murmurs, gallops, or rubs. RESPIRATORY: Breath sounds equal bilaterally. No accessory muscle use. MUSCULOSKELETAL: No cyanosis. Localized, nonpitting edema to the left medial, distal ankle. Tenderness to palpation around the bruising and swelling. Full range of motion of the lower extremity. 2+ dorsalis pedis pulse. Data Data Last Documented VS Vital Signs Date Time Temp Pulse Resp B/P (MAP) Pulse Ox O2 Delivery O2 Flow Rate FiO2 11/08/17 13:09 18 11/08/17 13:07 98.7 81 138/63 (88) 98 Orders Orders Tibia/Fibula (Ap/Lat) (11/08/17 ) Ed Discharge Order (11/08/17 13:46) [facility] Medical Decision Making Medical Screen Exam Complete: Yes Emergency Medical Condition: Yes Medical Record Reviewed: Yes Differential Diagnosis Contusion, fracture unlikely, strain, sprain, blood clot unlikely Narrative Course 71-year-old female presents to the emergency room for evaluation of left medial ankle pain, swelling, and bruising after injuring it 5 days ago. Patient states a step-ladder fell on her leg and it has not improved since then. States the pain seems to be worsening. Physical exam reveals a 6 cm area of old appearing ecchymosis and edema without increased warmth or erythema. It is localized to the left lower medial leg. No calf tenderness. 2+ dorsalis pedis pulse. Full range of motion of the left lower extremity. Patient is ambulatory. She is on Xarelto for A. fib. X-ray is negative. This is contusion. Patient was reassured and placed in Deep wrap. Told to follow-up with the primary care physician or return for worsening symptoms. She understands and agrees to plan. Diagnosis Primary Impression: Contusion of left leg Qualified Codes: S80.12XA - Contusion of left lower leg, initial encounter Referrals: Primary Care Physician Additional Instructions: Rest and drink plenty of fluids. Deep wrap as needed. Take Tylenol as directed, as needed for pain. Apply ice to the affected area for 20 minutes at a time, as needed for pain and swelling. Follow-up with a primary care physician. Return to the emergency room for worsening symptoms. Disposition: 01 DISCHARGE HOME Condition: Stable Feli Jacome Nov 08, 2017 13:30
--- NOTE | 2017-11-08 13:40 | RADRPT ---
EXAM DATE/TIME: 11/08/2017 13:29 [place] COMPARISON: No previous studies available for comparison. INDICATIONS : Left leg pain, ladder fell on leg. MEDICAL HISTORY : None. SURGICAL HISTORY : None. ENCOUNTER: Initial ACUITY: 4 - 6 days PAIN SCORE: 8/10 LOCATION: Left medial leg FINDINGS: Two view examination of the left tibia demonstrates no evidence of fracture or dislocation. Bony min eralization is normal. The soft tissue structures are intact. CONCLUSION: Unremarkable examination of the left tibia. Mikey Brenner MD on November 08, 2017 at 13:38 Board Certified Radiologist. This report was verified electronically.
[2017-11-08] MEDS ORDERED: BENZ100 PO (13:51)
== END 2017-11-08 14:01 | disposition home or self-care (01) ==
LOC: NEPK 12:41
DX: S80.12XA Contusion of left lower leg, initial encounter (principal); W20.8XXA Other cause of strike by thrown, projected or falling object, initial encounter; Y92.512 Supermarket, store or market as the place of occurrence of the external cause
CPT/HCPCS: 73590; 99283

== ENCOUNTER 2018-08-29 16:11 | Observation (INO) ==
[2018-08-29] MEDS ORDERED: hydrALAZINE HCl Inj 20 MG/ML Vial IV.PUSH ONE (16:24)
--- NOTE | 2018-08-29 16:32 | ED ---
HPI General Chief Complaint: Dizziness Stated Complaint: Dizziness Time Seen by Provider: 08/29/18 16:23 Source: patient Mode of arrival: EMS Limitations: no limitations History of Present Illness HPI Narrative: Patient is a pleasant 72-year-old female with history of hypertension and chronic dizziness, presents to the emergency room for evaluation of dizziness with hypertension. Patient reports that she currently takes metoprolol as well as amlodipine for her blood pressure. Patient does follow-up with her florist supplies salesperson, Dr. Whitaker. Patient reports that she went to her outpatient rehab today - the girl checking her in checked her blood pressure and noted it to be high. Reports that she kept getting systolic blood pressures of 256 and 253. She called EMS to bring her to the hospital for treatment of her hypertension. When EMS arrived on scene, reports that they tried to walk her onto the stretcher but patient felt so dizzy, she almost fell over - they had to catch her to prevent her from falling. Patient reports that she has been dizzy for a while - she has been compliant with her blood pressure medications and she uses a cane to ambulate as she suffers from b/l lower extremity edema and chronic pains to her leg. Patient at this time reports dizziness, denies any headache or vision changes. Patient denies any chest pain or shortness of breath, patient with no other complaints. Patient's BP here is 233/93 Related Data Allergies Allergy/AdvReac Type Severity Reaction Status Date / Time ceftriaxone Allergy Intermediate FLUSHING, Verified 08/29/18 16:25 ITCHING Review of Systems ROS: all other systems reviewed are negative PMFSH Medical History Medical History Dizziness (Acute) HTN (hypertension) (Acute) Surgical History Surgical History H/O abdominal surgery (Acute) History of colectomy (Acute) History of oophorectomy (Acute) Social History Social History Substance History: No History of Abuse Smoking Status: Never smoker How Often Do You Have a Drink Containing Alcohol: Never Recent Travel in [place] within the Last 8 Weeks: No Recent Out of Country Travel within the Last 8 Weeks: No Immunization History Tetanus Immunization: >5 Years Exam Narrative Exam Narrative: GENERAL: NAD SKIN: Focused skin assessment warm/dry. HEAD: Atraumatic. Normocephalic. EYES: Pupils equal and round. No scleral icterus. No injection or drainage. ENT: No nasal bleeding or discharge. Mucous membranes pink and moist. NECK: Trachea midline. No JVD. CARDIOVASCULAR: Regular rate and rhythm. +3/6 cardiac murmur RESPIRATORY: No accessory muscle use. Clear to auscultation. Breath sounds equal bilaterally. GASTROINTESTINAL: Abdomen soft, non-tender, nondistended. Hepatic and splenic margins not palpable. MUSCULOSKELETAL: No obvious deformities. No clubbing. No cyanosis. +1 LE pitting edema. NEUROLOGICAL: Awake and alert. No obvious cranial nerve deficits. Motor grossly within normal limits. Normal speech. PSYCHIATRIC: Appropriate mood and affect; insight and judgment normal. Course Initial Documented Vital Signs Pulse Rate 92 H 08/29/18 16:18 Respiratory Rate 23 08/29/18 16:18 Blood Pressure 233/93 H 08/29/18 16:18 Pulse Oximetry 99 08/29/18 16:18 Last Documented Vital Signs Pulse Rate 92 H 08/29/18 18:02 Respiratory Rate 16 08/29/18 18:02 Blood Pressure 171/78 H 08/29/18 18:02 Pulse Oximetry 99 08/29/18 18:02 Medical Decision Making MDM Narrative Medical decision making narrative: During the course of the patients emergency department visit, the patients history, examination, and differential diagnosis were reviewed with the patient. The patient was placed on a head of marketing adometry with oximetry and frequent blood pressure monitoring. The patient had an IV access obtained and blood work sent for analysis. The patient was initially provided IV hydralazine 10mg The patients laboratory studies were reviewed and remarkable for: White blood cell 9.5, hemoglobin 11.2, hematocrit 33, platelets 278 Sodium 143, potassium 4.8, chloride 110, BUN 13, creatinine 0.57, glucose 91 Troponin less than 0.02 Radiology studies were reviewed and remarkable for: CT of the head with no acute intracranial abnormalities is identified. After 10 mg of IV hydralazine, patient's blood pressure now 182/79. Plan to monitor patient and her blood pressure patient re-evaluated, still dizzy, will obs for near syncope as well as hypertensive urgency case reviewed with FP resident, will obs overnight for blood pressure monitoring Medical Screen Exam Complete: Yes Emergency Medical Condition: Yes Medical Records Medical records reviewed: Yes I reviewed the patient's medical records. Lab Data Lab results reviewed: Yes I reviewed the patient's lab results. Result diagrams: 08/29/18 16:46 08/29/18 16:46 Lab Results 08/29/18 08/29/18 08/29/18 Range/Units 16:46 16:46 16:46 WBC 9.5 (4.0-11.0) th/mm3 RBC 3.75 L (4.00-5.30) mil/mm3 Hgb 11.2 L (11.6-15.3) gm/dL Hct 33.0 L (35.0-46.0) % MCV 88.0 (80.0-100.0) fL MCH 29.8 (27.0-34.0) pg MCHC 33.8 (32.0-36.0) % RDW 16.4 (11.6-17.2) % Plt Count 278 (150-450) th/mm3 MPV 9.2 (7.0-11.0) fL Neut % (Auto) 72.9 H (16.0-70.0) % Lymph % (Auto) 12.7 (9.0-44.0) % Hand % (Auto) 9.5 H (0.0-8.0) % Eos % (Auto) 4.5 H (0.0-4.0) % Baso % (Auto) 0.4 (0.0-2.0) % Neut # (Auto) 6.9 (1.8-7.7) th/mm3 Lymph # (Auto) 1.2 (1.0-4.8) th/mm3 Hand # (Auto) 0.9 (0.0-0.9) th/mm3 Eos # (Auto) 0.4 (0.0-0.4) th/mm3 Baso # (Auto) 0.0 (0.0-0.2) th/mm3 WBC Differential . Differential Comment Auto diff final PT 10.6 (9.8-11.6) sec INR 1.0 Ratio Sodium 143 (136-145) meq/L Potassium 4.8 (3.5-5.1) meq/L Chloride 110 H (98-107) meq/L Carbon Dioxide 27.3 (21.0-32.0) meq/L Anion Gap 6 (5-15) meq/L BUN 13 (7-18) mg/dL Creatinine 0.57 (0.50-1.00) mg/dL Estimated GFR Greater than 89 (>89) mL/min Random Glucose 91 (74-106) mg/dL Calcium 8.6 (8.5-10.1) mg/dL Troponin I Less than 0.02 L (0.02-0.05) ng/mL Imaging Data Attestation: I personally reviewed and interpreted this imaging study as follows : Radiologist's impression: Head CT 08/29/18 16:24 CONCLUSION: No acute intracranial abnormality is identified. . Discharge Plan Discharge Disposition Patient Disposition: ED Admit(ED Internal Use Only) Discharge Condition Condition: Fair Discharge Order Discharge Orders: ED Use Only Admit Order (Routine); Ordered 08/29/18 Ordered By: Shabnam Stahl Discharge Details Diagnosis: Hypertensive urgency, Near syncope Physicians Team ED Provider: Shabnam Stahl Primary Care Provider: Jack Barton Discharge Interventions Interventions: Vital Signs Last Done: 08/29/18 18:02 Status ED Status: With Doctor
[2018-08-29 17:08] LABS: Baso % (Auto) 0.4 % (0.0-2.0); Eos # (Auto) 0.4 th/mm3 (0.0-0.4); Eos % (Auto) 4.5 % (0.0-4.0); Hemoglobin 11.2 gm/dL (11.6-15.3); Lymph # (Auto) 1.2 th/mm3 (1.0-4.8); Lymph % (Auto) 12.7 % (9.0-44.0); Mean Corpuscular HGB Conc 33.8 % (32.0-36.0); Mean Corpuscular Hemoglobin 29.8 pg (27.0-34.0); Mean Platelet Volume 9.2 fL (7.0-11.0); Mono # (Auto) 0.9 th/mm3 (0.0-0.9); Mono % (Auto) 9.5 % (0.0-8.0); Neut # (Auto) 6.9 th/mm3 (1.8-7.7); Neut % (Auto) 72.9 % (16.0-70.0); Platelet Count 278 th/mm3 (150-450); Red Blood Count 3.75 mil/mm3 (4.00-5.30); Red Cell Distribution Width 16.4 % (11.6-17.2); White Blood Count 9.5 th/mm3 (4.0-11.0)
[2018-08-29 17:18] LABS: Prothrombin Time 10.6 sec (9.8-11.6)
[2018-08-29 17:24] LABS: Anion Gap 6 meq/L (5-15); Blood Urea Nitrogen 13 mg/dL (7-18); Calcium 8.6 mg/dL (8.5-10.1); Carbon Dioxide 27.3 meq/L (21.0-32.0); Chloride 110 meq/L (98-107); Glomerular Filtration Rate Greater Than 89 mL/min (>89); Glucose,Random 91 mg/dL (74-106); Potassium 4.8 meq/L (3.5-5.1); Sodium 143 meq/L (136-145)
--- NOTE | 2018-08-29 17:43 | CT ---
EXAM DATE: 08/29/2018 5:39 PM EST AGE/SEX: 72 years / Female INDICATIONS: Dizziness. Near syncopal episode. CLINICAL DATA: This is the patient's initial encounter. Patient reports that signs and symptoms have been present for 1 day and indicates a pain score of 0/10. MEDICAL/SURGICAL HISTORY: Hypertension. None. RADIATION DOSE: 56.77 CTDI (mGy) COMPARISON: No prior exams available for comparison. TECHNIQUE: CT of the head without contrast. Using automated exposure control and adjustment of the mA and/or kV according to patient size, radiation dose was kept as low as reasonably achievable to ob tain optimal diagnostic quality images. DICOM format image data is available electronically for revi ew and comparison. FINDINGS: Cerebrum: The ventricles are normal. No midline shift, mass lesion, hemorrhage or acute infarction. No extraaxial fluid collections are seen. Posterior Fossa: The cerebellum and brainstem demonstrate no acute abnormality. The 4th ventricle is midline. The cerebellopontine angle is within normal limits. Extracranial: The visualized sinuses are clear. Skull: The calvaria is intact. No skull fracture. CONCLUSION: No acute intracranial abnormality is identified. . Electronically signed by: Doni Duong MD Board Certified Radiologist 08/29/2018 5:42 PM EST
--- NOTE | 2018-08-29 21:17 | P.HPFP ---
History of Present Illness Primary Care Physician: Jack Harris MD, R3 <Billy Harris L - 08/30/18 22:09> Jack Harrsi MD, R3 <Mg Phillips H - 08/29/18 21:17> History of Present Illness: Mrs. Cardoza is a 72-year-old female presenting to the ED with dizziness. Patient reports that earlier today she was seen at her outpatient rehabilitation center where she complained of dizziness. Staff worker then checked her blood pressure found repeat blood pressures of 256 and 253 systolic. EMS was then called to bring her to the emergency department for evaluation of hypertensive urgency. Per report, when EMS arrived patient was so dizzy that she was unable to ambulate to the stretcher and had to be caught before she fell. Patient reports that she has been dizzy for months, however has been compliant with her blood pressure medications (amlodipine and metoprolol). Besides her dizziness, patient endorses a mild intermittent headache over this timeframe as well as lower extremity weakness. She states that her right leg is weaker than her left leg and that is why she is currently completing rehabilitation. At baseline she ambulates with a cane and does report history of lower extremity edema. Currently during her interview, her blood pressure has been decreased to 156/81 and the patient states that she feels approximately 50% better and goes on to state that she would feel "100% better if she was able to eat." She currently denies any headaches, vision changes, palpitations, chest pain, shortness of breath, but does endorse lower extremity weakness. Otherwise she currently has no acute complaints. 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 GERD Depressive disorder Atrial fibrillation Aortic valve stenosis Past surgical history: Lung resection Hysterectomy Bilateral cataracts Bowel resection with PEG tube placement, resolved Plastic surgery on both arms Lysis of adhesions Appendectomy Family history: Fatherhypertension Otherwise noncontributory per patient Social: Tobaccopatient reports secondhand smoke from , otherwise never smoker AlcoholPatient reports no alcohol use Illicitno reported illicit drug history <Hadley Mg Branham - 08/30/18 00:46> - Diagnosis (1) Hypertensive urgency (2) Near syncope (3) Aortic stenosis (4) Atrial fibrillation (5) GERD (gastroesophageal reflux disease) (6) Insomnia (7) Hyperlipidemia (8) Nutrition, metabolism, and development symptoms <[facility] 08/30/18 22:09> (1) Hypertensive urgency (2) Near syncope (3) Atrial fibrillation (4) Aortic stenosis (5) GERD (gastroesophageal reflux disease) (6) Insomnia (7) Hyperlipidemia (8) Nutrition, metabolism, and development symptoms <[address] 08/30/18 00:20> Review of Systems Constitutional: Denies body ache(s), Denies fatigue, Denies lack of energy, Denies weakness <[address] 08/29/18 23:55> Eyes: Denies blurry vision, Denies double vision <[address] 08/29/18 23:55> Ears, Nose, Mouth, and Throat: Reports dizziness, Reports headache(s) <[address] 08/29/18 23:55> Cardiovascular: Denies chest pain, Denies fainting, Denies leg swelling < [address] 08/29/18 23:55> Respiratory: Denies chest congestion, Denies cough <[address] 23:55> Gastrointestinal: Denies abdominal pain, Denies loose stools, Denies nausea, Denies vomiting <[address] 08/29/18 23:55> Musculoskeletal: Reports muscle weakness, Denies joint pain, Denies numbness < [address] 08/29/18 23:55> Skin/Breast: Denies new lesions, Denies rash <[address] 08/29/18 23: 55> Neurologic: Reports dizziness, Reports frequent falls, Reports headache(s), Denies abnormal hearing, Denies fainting <[address] 08/29/18 23:55> PMFSH - History History Provided By: Patient <[address] 08/29/18 21:17> - Medical History Medical History: Medical History (Last Reviewed 08/29/18 @ 16:31 by Shabnam Stahl) Dizziness HTN (hypertension) <Billy Harris 08/30/18 22:09> Medical History (Last Reviewed 08/29/18 @ 16:31 by Shabnam Stahl) Dizziness HTN (hypertension) <[address] 08/29/18 21:17> - Surgical History Surgical History: Surgical History (Last Reviewed 08/29/18 @ 16:31 by Shabnam Stahl) H/O abdominal surgery History of colectomy History of oophorectomy <Billy Harris 08/30/18 22:09> Surgical History (Last Reviewed 08/29/18 @ 16:31 by Shabnam Stahl) H/O abdominal surgery History of colectomy [facility]omy [facility] 08/29/18 21:17> - Tobacco History Smoking Status: Never smoker <[facility] 08/29/18 21:17> - Alcohol History How Often Do You Have a Drink Containing Alcohol: Never <[facility] 21:17> - Substance Use History Substance History: No History of Abuse <[place] [id number] 08/29/18 21:17> - Travel History Recent Travel in the [facility] Within the Last 8 Weeks: No <[place] [id number] 08/29 21:17> Recent Travel Out of the Country Within the Last 8 Weeks: No <[place] [id number] 08/29/18 21:17> - Immunization History Tetanus Immunization: >5 Years <[facility]cher [facility] 08/29/18 21:17> Medications and Allergies Allergies Allergy/AdvReac Type Severity Reaction Status Date / Time ceftriaxone Allergy Intermediate FLUSHING, Verified 08/29/18 16:25 ITCHING <Billy Harris 08/30/18 22:09> Home Medications Medication Instructions Recorded Confirmed Type linaclotide [Linzess] 72 mcg PO DAILY 08/30/18 08/30/18 History metoprolol succinate 50 mg PO BID 08/30/18 08/30/18 History pantoprazole 40 mg PO DAILY 08/30/18 08/30/18 History ranitidine HCl 150 mg PO BID PRN 08/30/18 08/30/18 History rivaroxaban [Xarelto] 20 mg PO DAILY 08/30/18 08/30/18 History trazodone 50 mg PO HS 08/30/18 08/30/18 History umeclidinium-vilanterol [Anoro 1 inh INHALATION Q24H 08/30/18 08/30/18 History Ellipta] <Billy Harris 08/30/18 22:09> Active Medications: Active Medications Sodium Chloride (Ns Flush) 2 ml IV.FLUSH BID TUSHAR Sodium Chloride (Ns Flush) 2 ml IV.FLUSH PRN PRN PRN Reason: FLUSH AFTER USING IV ACCESS <Hadley BranhamMg H - 08/29/18 21:17> Exam Vital signs: Vital Signs 08/30/18 00:00 08/30/18 04:00 08/30/18 07:52 Temperature 97.8 F 98.3 F 97.8 F Pulse Rate 81 83 85 Respiratory Rate 16 17 16 Blood Pressure 122/59 L 115/56 L 149/68 H Pulse Oximetry 98 95 99 Intake & Output 08/30/18 08/30/18 08/31/18 06:59 18:59 06:59 Intake Total 840 / 840 240 / 240 Output Total 100 / 100 100 / 100 Balance 740 / 740 140 / 140 Weight 53.07 kg Intake: Oral 840 / 840 240 / 240 Output: Urine 100 / 100 100 / 100 Other: # Voids 2 3 Date of Last Bowel Movement 08/28/18 # Bowel Movements 0 <Billy Harris L - 08/30/18 22:09> Vital Signs 08/29/18 16:18 08/29/18 16:25 08/29/18 16:47 Pulse Rate 92 H 87 99 H Respiratory Rate 23 19 Blood Pressure 233/93 H Pulse Oximetry 99 97 08/29/18 17:00 08/29/18 18:02 08/29/18 20:06 Pulse Rate 98 H 92 H 92 H Respiratory Rate 24 16 16 Blood Pressure 182/79 H 171/78 H 161/70 H Pulse Oximetry 96 99 100 08/29/18 20:51 Pulse Rate Respiratory Rate Blood Pressure Pulse Oximetry 100 Intake & Output 08/29/18 08/29/18 08/30/18 06:59 18:59 06:59 Weight 61.235 kg Other: # Voids 3 <Mg Phillips H - 08/29/18 21:17> Narrative: GENERAL: Elderly female lying in bed in no acute distress. SKIN: Cool and dry. No rash. Normal capillary refill HEENT: Atraumatic, normocephalic with extraocular motions intact. No rhinorrhea. MMM. No palpable LAD, JVD, or thyroid abnormality appreciated. CARDIOVASCULAR: Tachycardic rate with regular rhythm. 3/6 systolic ejection murmur consistent with aortic stenosis. 2+ pulses in all 4 extremities. RESPIRATORY: Clear to auscultation bilaterally with no crackles, wheezes, or rhonchi. No increased work of breathing. GASTROINTESTINAL: Abdomen soft, non-tender, nondistended with positive bowel sounds. No masses appreciated. MUSCULOSKELETAL: No cyanosis or edema. No calf tenderness. Patient ambulating slowly, but unassisted per her report. PSYCH: Awake, alert, and oriented x3. Normal speech and judgement. NEUROLOGICAL: Speech- Fluent. No dysarthria or dysphasia. Good focus, attention, and comprehension. Cranial nerves- 3 through 12 intact. Motor/sensory/reflexes- Face- No facial droop. No tongue deviation. RUE- 5/5 strength in all musc groups, sensation intact. LUE- 5/5 strength in all musc groups, sensation intact. RLE- 5/5 strength in all musc groups, sensation intact. Reflexes 2+. LLE- 5/5 strength in all musc groups, sensation intact. Reflexes 2+. Pronator drift test-negative Babinski-negative No hemispace neglect. Able to repeat phrases. Able to name simple objects. Shot term memory intact. Able to perform heel to lopez. <Mg Phillips H - 08/29/18 23:55> Results - Labs Result diagrams: 08/29/18 16:46 08/29/18 16:46 <Billy Harris - 08/30/18 22:09> Abnormal lab results 08/30/18 08/30/18 Range/Units 02:26 05:05 Troponin I Less than 0.02 L (0.02-0.05) ng/mL Urine Clarity Hazy H (Clear) Urine Ketones Trace H (Negative) mg/dL Urine Mucus Few H (Occasional) /lpf Cardiac Enzymes 08/30/18 Range/Units 02:26 Troponin I Less than 0.02 L (0.02-0.05) ng/mL Urine 08/30/18 Range/Units 05:05 Urine Color Sandy (Yellw/Straw) Urine Clarity Hazy H (Clear) Urine pH 5.0 (5.0-8.5) Ur Specific [place] 1.021 (1.002-1.035) Urine Protein Negative (Neg-Trace) mg/dL Urine Glucose (UA) Negative (Negative) mg/dL <Billy Harris L - 08/30/18 22:09> Abnormal lab results 08/29/18 08/29/18 Range/Units 16:46 16:46 RBC 3.75 L (4.00-5.30) mil/mm3 Hgb 11.2 L (11.6-15.3) gm/dL Hct 33.0 L (35.0-46.0) % Neut % (Auto) 72.9 H (16.0-70.0) % Nance % (Auto) 9.5 H (0.0-8.0) % Eos % (Auto) 4.5 H (0.0-4.0) % Chloride 110 H (98-107) meq/L Troponin I Less than 0.02 L (0.02-0.05) ng/mL Short CBC 08/29/18 Range/Units 16:46 WBC 9.5 (4.0-11.0) th/mm3 Hgb 11.2 L (11.6-15.3) gm/dL Hct 33.0 L (35.0-46.0) % Plt Count 278 (150-450) th/mm3 BMP 08/29/18 16:46 Sodium 143 Potassium 4.8 Chloride 110 H Carbon Dioxide 27.3 BUN 13 Creatinine 0.57 Calcium 8.6 Cardiac Enzymes 08/29/18 Range/Units 16:46 Troponin I Less than 0.02 L (0.02-0.05) ng/mL <Mg Phillips H - 08/29/18 21:17> - Imaging Impressions Head CT 08/29/18 16:24 CONCLUSION: No acute intracranial abnormality is identified. . <Mg Phillips - 08/29/18 21:17> Caprini VTE Risk Assessment Caprini VTE Risk Assessment: Moderate/High Risk (score >= 2) <Mg Phillips - 08/29/18 23:55> Caprini Risk Assessment Model: Point Value = 1 Point Value = 2 Point Value = 3 Point Value = 5 Age 41-60 Minor surgery BMI > 25 kg/m2 Swollen legs Varicose veins or History of unexplained or recurrent spontaneous Oral contraceptives or hormone replacement Sepsis (< 1 month) Serious lung disease, including pneumonia (< 1 month) Abnormal pulmonary function Acute myocardial infarction Congestive heart failure (< 1 month) History of inflammatory bowel disease Medical patient at bed rest Age 61-74 Arthroscopic surgery Major open surgery (> 45 min) Laparoscopic surgery (> 45 min) Malignancy Confined to bed (> 72 hours) Immobilizing plaster cast Central venous access Age >= 75 History of VTE Family history of VTE Factor V Leiden Prothrombin [id number] Lupus anticoagulant Anticardiolipin antibodies Elevated serum homocysteine Heparin-induced thrombocytopenia Other congenital or acquired thrombophilia Stroke (< 1 month) Elective arthroplasty Hip, pelvis, or leg fracture Acute spinal cord injury (< 1 month) <Billy Harris - 18 22:09> Point Value = 1 Point Value = 2 Point Value = 3 Point Value = 5 Age 41-60 Minor surgery BMI > 25 kg/m2 Swollen legs Varicose veins or History of unexplained or recurrent spontaneous Oral contraceptives or hormone replacement Sepsis (< 1 month) Serious lung disease, including pneumonia (< 1 month) Abnormal pulmonary function Acute myocardial infarction Congestive heart failure (< 1 month) History of inflammatory bowel disease Medical patient at bed rest Age 61-74 Arthroscopic surgery Major open surgery (> 45 min) Laparoscopic surgery (> 45 min) Malignancy Confined to bed (> 72 hours) Immobilizing plaster cast Central venous access Age >= 75 History of VTE Family history of VTE Factor V Leiden Prothrombin [id number] Lupus anticoagulant Anticardiolipin antibodies Elevated serum homocysteine Heparin-induced thrombocytopenia Other congenital or acquired thrombophilia Stroke (< 1 month) Elective arthroplasty Hip, pelvis, or leg fracture Acute spinal cord injury (< 1 month) <Mg Phillips H - 08/29/18 21:17> Prophylaxis Regimen: Total Risk Factor Score Risk Level Prophylaxis Regimen 0-1 Low Early ambulation 2 Moderate Order ONE of the following: *Sequential Compression Device (SCD) *Heparin 5000 units SQ BID 3-4 Higher Order ONE of the following medications: *Heparin 5000 units SQ TID *Enoxaparin/Lovenox 40 mg SQ daily (WT < 150 kg, CrCl > 30 mL/min) *Enoxaparin/Lovenox 30 mg SQ daily (WT < 150 kg, CrCl > 10-29 mL/min) *Enoxaparin/Lovenox 30 mg SQ BID (WT < 150 kg, CrCl > 30 mL/min) AND/OR *Sequential Compression Device (SCD) 5 or more Highest Order ONE of the following medications: *Heparin 5000 units SQ TID (Preferred with Epidurals) *Enoxaparin/Lovenox 40 mg SQ daily (WT < 150 kg, CrCl > 30 mL/min) *Enoxaparin/Lovenox 30 mg SQ daily (WT < 150 kg, CrCl > 10-29 mL/min) *Enoxaparin/Lovenox 30 mg SQ BID (WT < 150 kg, CrCl > 30 mL/min) AND *Sequential Compression Device (SCD) <Billy Harris L - 08/30/18 22:09> Total Risk Factor Score Risk Level Prophylaxis Regimen 0-1 Low Early ambulation 2 Moderate Order ONE of the following: *Sequential Compression Device (SCD) *Heparin 5000 units SQ BID 3-4 Higher Order ONE of the following medications: *Heparin 5000 units SQ TID *Enoxaparin/Lovenox 40 mg SQ daily (WT < 150 kg, CrCl > 30 mL/min) *Enoxaparin/Lovenox 30 mg SQ daily (WT < 150 kg, CrCl > 10-29 mL/min) *Enoxaparin/Lovenox 30 mg SQ BID (WT < 150 kg, CrCl > 30 mL/min) AND/OR *Sequential Compression Device (SCD) 5 or more Highest Order ONE of the following medications: *Heparin 5000 units SQ TID (Preferred with Epidurals) *Enoxaparin/Lovenox 40 mg SQ daily (WT < 150 kg, CrCl > 30 mL/min) *Enoxaparin/Lovenox 30 mg SQ daily (WT < 150 kg, CrCl > 10-29 mL/min) *Enoxaparin/Lovenox 30 mg SQ BID (WT < 150 kg, CrCl > 30 mL/min) AND *Sequential Compression Device (SCD) <Mg Phillips H - 08/29/18 21:17> Assessment and Plan - Assessment (1) Hypertensive urgency Code(s): I16.0 - Hypertensive urgency Status: Acute (2) Near syncope Code(s): R55 - Syncope and collapse Status: Acute (3) Aortic stenosis Code(s): I35.0 - Nonrheumatic aortic (valve) stenosis Status: Chronic (4) Atrial fibrillation Code(s): I48.91 - Unspecified atrial fibrillation Status: Chronic (5) GERD (gastroesophageal reflux disease) Code(s): K21.9 - Gastro-esophageal reflux disease without esophagitis Status: Chronic (6) Insomnia Code(s): G47.00 - Insomnia, unspecified Status: Chronic (7) Hyperlipidemia Code(s): E78.5 - Hyperlipidemia, unspecified Status: Chronic (8) Nutrition, metabolism, and development symptoms Code(s): R63.8 - Other symptoms and signs concerning food and fluid intake Status: Acute <Billy Harris - 08/30/18 22:09> (1) Hypertensive urgency Code(s): I16.0 - Hypertensive urgency Status: Acute Plan: Patient admitted for observation after becoming symptomatic with hypertensive urgency. Patient has shown no neurologic signs concerning for TIA/CVA at this time. Patient reports compliance with her outpatient medications. Currently at the time of the medical team's evaluation patient's blood pressure better controlled at 156/81 and patient reports she is asymptomatic. Head CT: Negative CBC: H/H 11.233 otherwise no acute abnormalities Coagulation: Within normal limits BMP: No acute abnormalities Troponin: Negative, repeat x1 ordered EKG: Sinus rhythm with heart rate of 77 bpm. Left ventricular hypertrophy. No acute ST abnormalities or interval abnormalities appreciated. Neurochecks orders with vital signs every 4 hours Medications: Continue home amlodipine and metoprolol Vasotec as needed for blood pressure greater than 180/110 (2) Near syncope Code(s): R55 - Syncope and collapse Status: Acute Plan: Patient with near syncope prior to admission likely related to hypertensive urgency, however differential remains wide Carotid ultrasound 06/19/18: Right carotid artery with moderate calcified [place] distal common carotid artery with no sonographic or Doppler findings of significant stenosis. Left internal carotid artery with mild atherosclerotic plaquing and no sonographic or Doppler findings of significant stenosis. There are markedly elevated velocities in the left external carotid which could represent high-grade stenosis of the vessel. Antegrade flow in the vertebral arteries. Echocardiogram 0 04/26: Normal left ventricular size with ejection fraction of 50-55%. Aortic valve sclerosis present. Mitral annular calcification present. Moderate mitral valve regurgitation. Trace aortic valve regurgitation. Moderate tricuspid valve regurgitation. Pulmonary artery pressure of 45 mmHg. Repeat echocardiogram ordered Please see plan as above (3) Atrial fibrillation Code(s): I48.91 - Unspecified atrial fibrillation Status: Chronic Plan: Patient with history of atrial fibrillation EKG as above Medications: Continue home metoprolol Continue home Eliquis (4) Aortic stenosis Code(s): I35.0 - Nonrheumatic aortic (valve) stenosis Status: Chronic Plan: Patient with history of aortic stenosis which could possibly related to her presyncope/syncope Echocardiogram as above, repeat examination ordered (5) GERD (gastroesophageal reflux disease) Code(s): K21.9 - Gastro-esophageal reflux disease without esophagitis Status: Chronic Plan: Patient with history of gastroesophageal reflux disease Medications: Continue home pantoprazole (6) Insomnia Code(s): G47.00 - Insomnia, unspecified Status: Chronic Plan: Patient with reported insomnia Medications: Continue home trazodone (7) Hyperlipidemia Code(s): E78.5 - Hyperlipidemia, unspecified Status: Chronic Plan: Patient with history of hyperlipidemia Medications: Continue atorvastatin 40 mg (equivalent to rosuvastatin 10 mg) (8) Nutrition, metabolism, and development symptoms Code(s): R63.8 - Other symptoms and signs concerning food and fluid intake Status: Acute Plan: Fluids: Patient appears well-hydrated and is tolerating oral fluids well Diet: Heart healthy diet as tolerated Electrolytes: Within normal limits, continue to monitor Prophylaxis: Zofran as needed for nausea/vomiting, Vasotec as needed for blood pressure greater than 180/110, Tylenol as needed for fever/pain/headache, constipation protocol DVT prophylaxis: Patient currently anticoagulated on Eliquis, SCDs Physical therapy ordered to assist with lower extremity weakness <Mg Phillips - 08/30/18 00:20> - Attending Attestation The exam, history, and the medical decision-making described in the above note were completed with the assistance of the resident physician. I reviewed and agree with the findings presented. I attest that I had a [id number] encounter with the patient on the following day, and personally performed and documented my assessment and findings in the medical record. Please see my documentation on 08/30/18. <Billy Harris - 08/30/18 22:09>
[2018-08-29] MEDS ORDERED: Acetaminophen 325 MG Tablet PO PRN (21:26)
[2018-08-29] MEDS ORDERED: traZODone 50 MG Tablet PO SCH (21:30)
[2018-08-30] MEDS ORDERED: Bisacodyl 10 MG Supp RECTAL PRN (00:39)
[2018-08-30] MEDS ORDERED: Senna/Docusate Sodium 8.6/50 MG Tablet PO PRN (00:39)
[2018-08-30 05:45] LABS: Bilirubin,Urine Negative (Negative); Clarity,Urine Hazy (Clear); Color,Urine Amber (Yellw/Straw); Glucose,Urine (UA) Negative (Negative); Hyaline Casts,Urine 1 /lpf (0-3); Leukocyte Esterase,Urine Negative (Negative); Mucus,Urine Few /lpf (Occasional); Nitrite,Urine Negative (Negative); Specific Gravity,Urine 1.021 (1.002-1.035); Squamous Epithelial Cell,Urine <1 /hpf (0-5)
[2018-08-30 07:54] VITALS: BP 149/68; PULSE 85; RESP 16; TEMP 97.8; O2SAT 99
[2018-08-30] MEDS ORDERED: Rivaroxaban 20 MG Tablet PO SCH (09:00)
[2018-08-30] MEDS ORDERED: amLODIPine 5 MG Tablet PO SCH (09:00)
--- NOTE | 2018-08-30 09:51 | ECG ---
Date Performed: 08/29/2018 Time Performed: 16:26:38 PTAGE: 72 years EKG: Sinus rhythm MODERATE VOLTAGE CRITERIA FOR LVH, CONSIDER NORMAL VARIANT BORDERLINE ECG PREVIOUS TRACING : 04/17/2017 08.45 DOCTOR: Mikey Max Interpretating Date/Time 08/30/2018 09:50:08
--- NOTE | 2018-08-30 11:20 | P.PNFP ---
Subjective Interval history: This is a 72 year old female with a history of moderate aortic stenosis from calcification of the valve, intermittent episodes of significantly elevated blood pressure, and episodes of dizziness vs. presyncope that seem non- exertional and relatively random. She was admitted to our team overnight. This morning, she is sitting up in bed, in no distress. She reports no current dizziness. She has no headaches, blurry vision, chest pain, shortness of breath , abdominal pain, nausea, vomiting, diarrhea. She has chronic lower extremity edema. Overall, she states "I am 100% back to normal" and is eager to go home. She has plans to follow up with her PCP Dr. Harris who is also seeing her here in the hospital. Results - Labs Result diagrams: 08/29/18 16:46 08/29/18 16:46 Abnormal lab results 08/29/18 08/29/18 08/30/18 Range/Units 16:46 16:46 02:26 RBC 3.75 L (4.00-5.30) mil/mm3 Hgb 11.2 L (11.6-15.3) gm/dL Hct 33.0 L (35.0-46.0) % Neut % (Auto) 72.9 H (16.0-70.0) % [place] % (Auto) 9.5 H (0.0-8.0) % Eos % (Auto) 4.5 H (0.0-4.0) % Chloride 110 H (98-107) meq/L Troponin I Less than 0.02 L Less than 0.02 L (0.02-0.05) ng/mL Urine Clarity (Clear) Urine Ketones (Negative) mg/dL Urine Mucus (Occasional) /lpf 08/30/18 Range/Units 05:05 RBC (4.00-5.30) mil/mm3 Hgb (11.6-15.3) gm/dL Hct (35.0-46.0) % Neut % (Auto) (16.0-70.0) % [place] % (Auto) (0.0-8.0) % Eos % (Auto) (0.0-4.0) % Chloride (98-107) meq/L Troponin I (0.02-0.05) ng/mL Urine Clarity Hazy H (Clear) Urine Ketones Trace H (Negative) mg/dL Urine Mucus Few H (Occasional) /lpf Short CBC 08/29/18 Range/Units 16:46 WBC 9.5 (4.0-11.0) th/mm3 Hgb 11.2 L (11.6-15.3) gm/dL Hct 33.0 L (35.0-46.0) % Plt Count 278 (150-450) th/mm3 BMP 08/29/18 16:46 Sodium 143 Potassium 4.8 Chloride 110 H Carbon Dioxide 27.3 BUN 13 Creatinine 0.57 Calcium 8.6 Cardiac Enzymes 08/29/18 08/30/18 Range/Units 16:46 02:26 Troponin I Less than 0.02 L Less than 0.02 L (0.02-0.05) ng/mL Urine 08/30/18 Range/Units 05:05 Urine Color [place] (Yellw/Straw) Urine Clarity Hazy H (Clear) Urine pH 5.0 (5.0-8.5) Ur Specific [place] 1.021 (1.002-1.035) Urine Protein Negative (Neg-Trace) mg/dL Urine Glucose (UA) Negative (Negative) mg/dL - Imaging Impressions Head CT 08/29/18 16:24 CONCLUSION: No acute intracranial abnormality is identified. . Physical Exam Vital signs: Vital Signs 08/29/18 16:18 08/29/18 16:25 08/29/18 16:47 Temperature Pulse Rate 92 H 87 99 H Respiratory Rate 23 19 Blood Pressure 233/93 H Pulse Oximetry 99 97 08/29/18 17:00 08/29/18 18:02 08/29/18 20:06 Temperature Pulse Rate 98 H 92 H 92 H Respiratory Rate 24 16 16 Blood Pressure 182/79 H 171/78 H 161/70 H Pulse Oximetry 96 99 100 08/29/18 20:51 08/29/18 21:51 08/30/18 00:00 Temperature 97.7 F 97.8 F Pulse Rate 92 H 81 Respiratory Rate 16 16 Blood Pressure 127/59 L 122/59 L Pulse Oximetry 100 98 98 08/30/18 04:00 08/30/18 07:52 Temperature 98.3 F 97.8 F Pulse Rate 83 85 Respiratory Rate 17 16 Blood Pressure 115/56 L 149/68 H Pulse Oximetry 95 99 Intake & Output 08/29/18 08/30/18 08/30/18 18:59 06:59 18:59 Intake Total 840 / 840 240 / 240 Output Total 100 / 100 100 / 100 Balance 740 / 740 140 / 140 Weight 61.235 kg 53.07 kg Intake: Oral 840 / 840 240 / 240 Output: Urine 100 / 100 100 / 100 Other: # Voids 3 2 Date of Last Bowel Movement 08/28/18 # Bowel Movements 0 Narrative: General: Sitting up in bed, no distress Skin: No rashes or lesions HEENT: normocephalic, no conjunctivitis, no nasal discharge Neck: No lymphadenopathy, no thyromegaly CV: 3/6 Systolic ejection murmur heard best over the aortic valve, regular rate and rhythm, regular pulses and cap refill Lungs: CTAB Abdomen: soft, nontender, nondistended, normal bowel sounds Ext: 2+ pitting edema up to mid-shins bilaterally Neuro: Awake, alert, no focal deficits Assessment and Plan - Assessment (1) Hypertensive urgency Code(s): I16.0 - Hypertensive urgency Status: Acute Plan: Patient admitted for observation after becoming symptomatic with hypertensive urgency. Patient has shown no neurologic signs concerning for TIA/CVA. Labs are not suggestive of end organ damage. Patient reports compliance with her outpatient medications. BP 149/68. Head CT negative. No renal dysfunction. Troponin levels normal. EKG with possibly some left ventricular hypertrophy. No acute ST changes. Neurologically without focal deficit. Continue home amlodipine and metoprolol, may need to add third agent in the outpatient setting for better control. Given intermittent and significant hypertension, would benefit from a workup in the outpatient setting to rule out secondary causes of hypertension, such as thyroid disorder, hyperaldosteronism, pheochromocytoma, renovascular disease, etc. - Will follow with her PCP Dr. Harris closely. (2) Near syncope Code(s): R55 - Syncope and collapse Status: Acute Plan: Patient with near syncope prior to admission. This is a chronic issue. Presyncope occurs at random, but she does have warning signs it will occur. She does not believe she actually blacks out. She does fall down as a result of these episodes. She notes feeling dizzy and lightheaded when it happens. Does not seem exertional. She has moderate aortic stenosis and significant murmur on exam. Most recent ECHO was just a couple months ago which did show some interval worsening of her aortic stenosis. She is followed closely by her feller buncher operator, Dr. Whitaker, who is aware of her aortic stenosis. Because her episodes are non-exertional, may be less likely attributable to valvular pathology. Carotid ultrasound 06/19/18: Right carotid artery with moderate calcified plaquing distal common carotid artery with no sonographic or Doppler findings of significant stenosis. Left internal carotid artery with mild atherosclerotic plaquing and no sonographic or Doppler findings of significant stenosis. There are markedly elevated velocities in the left external carotid which could represent high-grade stenosis of the vessel. Antegrade flow in the vertebral arteries. Echocardiogram 04/26: Normal left ventricular size with ejection fraction of 50- 55%. Aortic valve sclerosis present. Mitral annular calcification present. Moderate mitral valve regurgitation. Trace aortic valve regurgitation. Moderate tricuspid valve regurgitation. Pulmonary artery pressure of 45 mmHg. - follow closely with Dr. Whitaker, cardiology, and Dr. Harris, PCP (3) Aortic stenosis Code(s): I35.0 - Nonrheumatic aortic (valve) stenosis Status: Chronic Plan: Patient with history of aortic stenosis which could possibly related to her presyncope/syncope See plan above (4) Atrial fibrillation Code(s): I48.91 - Unspecified atrial fibrillation Status: Chronic Plan: Patient with history of paroxysmal atrial fibrillation EKG as above Medications: Continue home metoprolol Continue home Eliquis (5) GERD (gastroesophageal reflux disease) Code(s): K21.9 - Gastro-esophageal reflux disease without esophagitis Status: Chronic Plan: Patient with history of gastroesophageal reflux disease Medications: Continue home pantoprazole (6) Insomnia Code(s): G47.00 - Insomnia, unspecified Status: Chronic Plan: Patient with reported insomnia Medications: Continue home trazodone (7) Hyperlipidemia Code(s): E78.5 - Hyperlipidemia, unspecified Status: Chronic Plan: Patient with history of hyperlipidemia Medications: Continue atorvastatin 40 mg (equivalent to rosuvastatin 10 mg) (8) Nutrition, metabolism, and development symptoms Code(s): R63.8 - Other symptoms and signs concerning food and fluid intake Status: Acute Plan: Fluids: Patient appears well-hydrated and is tolerating oral fluids well Diet: Heart healthy diet Electrolytes: Within normal limits DVT prophylaxis: Patient currently anticoagulated on Eliquis, SCDs Physical therapy: has cane at home - Assessment and Plan Discussed Condition With: Discussed with Dr. Harris Discharge Planning: - Discharge home today - Close follow up with Dr. Harris, PCP - Close follow up with Dr. Whitaker, feller buncher operator - Watch valves regularly, continue to monitor presyncope - Take presyncope precautions, such as standing up slowly, sitting or lying down immediately if feeling lightheaded - Would benefit from workup for secondary hypertension as an outpatient - Continue outpatient rehab/physical therapy as before admission
== END 2018-08-30 11:19 | disposition home or self-care (01) ==
LOC: NEPE 16:11 → NEDA 16:11 → NEPHCDU 21:16
PROVIDERS: ADMIT Family Medicine; ATTEND Family Medicine
DX: M79.661 Pain in right lower leg; R60.0 Localized edema; I16.0 Hypertensive urgency; I08.3 Combined rheumatic disorders of mitral, aortic and tricuspid valves; R55 Syncope and collapse; Z90.49 Acquired absence of other specified parts of digestive tract; I35.0 Nonrheumatic aortic (valve) stenosis; M79.662 Pain in left lower leg; G89.29 Other chronic pain; R42 Dizziness and giddiness